=== PATIENT | male | born 1960 | race Caucasian/White ===

== ENCOUNTER → 2018-08-11 | Outpatient (CLI) | payer OTHER ==
[2018-08-11 17:15] LABS: HGB 15.1 gm/dL (13.0-17.5); MCH 31.1 pg (25.0-35.0); MCHC 32.1 g/dL (31.0-37.0); MCV 96.8 fL (80.0-100.0); Mean Platelet Volume 7.2; Platelet Count 202 k/uL (150-450); RBC 4.85 m/uL (4.30-5.90); RDW 14.3 % (11.5-15.5); WBC 9.4 k/uL (3.8-10.6)
[2018-08-11 17:30] LABS: Anion Gap 10 mmol/L; Blood Urea Nitrogen 9 mg/dL (9-20); Carbon Dioxide 27 mmol/L (22-30); Chloride 103 mmol/L (98-107); Potassium 4.8 mmol/L (3.5-5.1); Sodium 140 mmol/L (137-145)
== END ==
LOC: LABPAT 16:30
PROVIDERS: ATTEND Internal Medicine Interventional Cardiology
DX: Z01.812 Encounter for preprocedural laboratory examination (principal); R94.39 Abnormal result of other cardiovascular function study; R06.02 Shortness of breath
CPT/HCPCS: 36415; 80051; 82565; 84520; 85027

== ENCOUNTER → 2018-08-26 | Day surgery (SDC) | payer OTHER ==
[2018-08-21 13:20] VITALS: BMI 21.4
[~2018-08-26] MED LIST: ACETAMINOPHEN TAB 325 MG TAB PO PRN; ALPRAZolam 0.25 MG TAB PO PRN; ALPRAZolam 0.5 MG TAB PO PRN; ASPIRIN 325 MG TAB PO ONE; ATORVASTATIN 20 MG TAB PO SCH; ATORVASTATIN 80 MG TAB PO ONE; IOPAMIDOL-370 100ML BTL INJ ONE; ISOSORBIDE MONONITRATE ER 30 MG TAB.ER.24H PO SCH; LIDOCAINE 1% INJ 10MG/ML (20 ML MDV) ONE; LIDOCAINE 1% INJ 10MG/ML (20 ML MDV) SQ ONE; LOSARTAN 50 MG TAB PO SCH; METOPROLOL TARTRATE 25 MG TAB PO SCH; NITROGLYCERIN 1000MCG/10ML SYRINGE INTRACORON ONE; NITROGLYCERIN SL TABS 0.4 MG TAB SUBLINGUAL PRN; NON-FORMULARY DRUG (Aspirin [Adult Low Dose Aspirin Ec] 81 MG) PO SCH; PANTOPRAZOLE 40 MG TABLET PO SCH; SODIUM CHLORIDE 0.9% 1,000 ML IV SCH; SODIUM CHLORIDE 0.9% 1,000 ML in EMPTY BAG 1 BAG IV ONE; TAMSULOSIN 0.4 MG CAP.ER.24H PO SCH; VENLAFAXINE HCL ER 150 MG CAP PO SCH; clonazePAM 0.5 MG TAB PO SCH; diphenhydrAMINE 50 MG/ML 1 ML VIAL IVP ONE; diphenhydrAMINE 50 MG/ML 1 ML VIAL ONE; lamoTRIgine 25 MG TAB PO SCH
[2018-08-26 06:58] VITALS: RESP 18; TEMP 95.9
[2018-08-26] MEDS: MIDAZOLAM (PF) 2 MG/2 ML VIAL IV ONE ×2 (07:39→07:45)
--- NOTE | 2018-08-26 09:41 | CC ---
CARDIAC CATHETERIZATION REPORT DATE OF SERVICE: 08/26/2018 PROCEDURE: Left heart catheterization, coronary angiography and left ventriculography. PERFORMED BY: Dr. Melly Culp. CLINICAL INFORMATION: Mr. Los Johnson is a 58-year-old gentleman, history of smoking and alcoholism with abnormal stress test. Possibility of alcoholic cardiomyopathy was also considered given the decreased ejection fraction. However, in view of his abnormal stress test and symptoms of chest tightness, pressure and shortness of breath. He was advised to have coronary angiography. Risks, benefits, options and rationale were explained. PROCEDURE NOTE: Under local anesthesia and strict aseptic precautions, a 6-Peruvian introducer was placed in the right femoral artery. Using standard Dianne catheters, I performed coronary angiography and a pigtail catheter was used to perform an LV-gram. The sheath was taken out and an Angio-Seal device used to secure hemostasis and patient was sent to the room in a stable condition. After injected the right coronary artery, patient's entire RCA went into a spasm. It appears that there is a significant vasospastic tendency for this patient. I then went back and gave him nitroglycerin and repeated the injections which showed that complete resolution of spasm without any obstructive CAD in the dominant RCA. On the left system, there were no such spasm issues. LV gram was also performed in 30 degree ARRIAZA projection. Patient tolerated the procedure well without complications. CARDIAC CATHETERIZATION FINDINGS: The left end-diastolic pressure was about 12 mmHg without any gradient across the aortic valve. CORONARY ANGIOGRAPHY FINDINGS: RIGHT CORONARY ARTERY: There was intense spasm of this vessel when I did the first injection and the spasm was not just focally at the ostium. The whole vessel had revealed spasm diffusely. Following a nitroglycerin injection, intracoronary of 100 mcg, the entire spasm resolved and the vessel looked widely patent without any disease whatsoever. RCA is therefore a dominant vessel without significant disease. Distally bifurcates into a large PDA and PLV, both of which have minor irregularities and no significant disease. LEFT MAIN CORONARY ARTERY: This is a short, patent, disease-free vessel that bifurcates into LAD and circumflex. There is mild calcification of the left main. LEFT ANTERIOR DESCENDING CORONARY ARTERY: Good caliber vessel extends along the anterior wall, gives off septal and diagonal branches, runs all the way to the apex and curves over the apex to supply the inferoapical portion of left ventricle. LAD is therefore free of significant disease. LEFT POSTERIOR CIRCUMFLEX CORONARY ARTERY: This is a very large caliber, large distribution vessel, gives off three obtuse marginal branches, all of them of fair caliber and distally it continues as a posterolateral branch. There are minor irregularities but no significant disease in a large caliber, large distribution, nondominant circumflex coronary artery. LEFT VENTRICULOGRAM: This was performed in 30 degree ARRIAZA projection, this revealed left ventricle is of normal size with mild global decrease in contractility with an estimated ejection fraction of about 45% by visual inspection. There was no mitral regurgitation of significance noted. FINAL IMPRESSION: This patient has a vasospastic dominant right coronary artery which was widely patent after intracoronary injection of nitroglycerin. The left system is free of significant disease. There is mild global decrease in contractility, estimated ejection fraction of about 45% by visual inspection suggestive of nonischemic cardiomyopathy. Filling pressures are normal and there is no gradient across the aortic valve. RECOMMENDATIONS: Findings were discussed with the patient and family. I am recommending complete cessation of alcohol with a repeat echo in about 3 months. I will also start him on Imdur 30 mg b.i.d. The patient does smoke on a regular basis. I have advised smoking cessation which could be contributing to spasm and also not to use marijuana. Alcohol, marijuana, and tobacco abuse to be stopped altogether. Imdur 30 mg half-tablet b.i.d. will be initiated. The moderate conscious sedation time for this procedure was 24 minutes. Patient's oxygen saturation, hemodynamics and EKG were monitored closely. He was administered Versed 1 mg intravenously. MMODL / IJN: [id number] /
[2018-08-26 13:16] VITALS: BP 132/72; PULSE 50
== END ==
LOC: CATHCVL 06:16
PROVIDERS: ATTEND Internal Medicine Interventional Cardiology
DX: I25.110 Atherosclerotic heart disease of native coronary artery with unstable angina pectoris (principal); I25.84 Coronary atherosclerosis due to calcified coronary lesion; F31.70 Bipolar disorder, currently in remission, most recent episode unspecified; J44.9 Chronic obstructive pulmonary disease, unspecified; F17.210 Nicotine dependence, cigarettes, uncomplicated; F10.20 Alcohol dependence, uncomplicated; Z79.82 Long term (current) use of aspirin; Z79.899 Other long term (current) drug therapy; Z88.5 Allergy status to narcotic agent
CPT/HCPCS: 93458; C1760; C1894; C1769 ×2; J1200; J2001; Q9967; J2250

== ENCOUNTER → 2019-06-05 | Outpatient (CLI) | payer OTHER ==
--- NOTE | 2019-06-08 11:51 | PE ---
Nuclear medicine PET/CT HISTORY: Left lower lobe lung nodule, initial Patient received 11.8 mCi F-18 FDG intravenously in delayed scanning was performed from the skull bas e to the mid thighs. Localization and attenuation correction CT scan was performed. No comparisons, comparison to outside report of CT dated 03 March 2019 Neck and chest: There is spiculated density described outside report is not seen definitively on [facility]'s nuclear medicine PET/CT. There is no associated hypermetabolic uptake within the lungs. No pleura l pericardial effusion. Biapical pleural thickening is present. Mild hilar uptake. No supraclavicular adenopathy. No axillary or mediastinal adenopathy. There is a small hiatal hernia. ABDOMEN: No suspicious hypermetabolic uptake. No evident adrenal or liver mass. Extensive diverticula r change present in the sigmoid colon. Osseous structures unremarkable. IMPRESSION: Pulmonary nodule described in prior report is no longer evident.
== END | disposition home or self-care (01) ==
LOC: RADPETMAIN 10:49
PROVIDERS: ATTEND Internal Medicine Critical Care Medicine
DX: R91.8 Other nonspecific abnormal finding of lung field (principal)
CPT/HCPCS: 78815; A9552

== ENCOUNTER → 2023-01-07 | Outpatient (CLI) | payer OTHER ==
--- NOTE | 2023-01-07 10:22 | CT ---
EXAMINATION TYPE: CT chest w con DATE OF EXAM: 01/07/2023 COMPARISON: None HISTORY: Personal history of tobacco use. CT DLP: 345 mGycm Automated exposure control for dose reduction was used. CONTRAST: CT scan of the chest is performed with IV Contrast, patient injected with 100ml mL of Isovue 300. FINDINGS: LUNGS: There is pleural parenchymal nodular density in the region of the lingula which is likely rela karl to postinflammatory scarring rather than a nodule however there is a nodular component measuring 1.6 cm. This is likely benign however follow-up is recommended. Additional parenchymal scarring is se en within the left upper lobe anteriorly as well as the right upper lobe and right middle lobe. Addit ional parenchymal scar at the lung bases versus mild dependent atelectasis. There is hyperinflation c ompatible with COPD. Mild upper lobe emphysematous change is noted. MEDIASTINUM: There are no greater than 1 cm hilar or mediastinal lymph nodes. No pericardial effusi on is seen. Thoracic aorta is of normal caliber. The heart is not enlarged. UPPER ABDOMEN: No significant abnormality appreciated. OTHER: No additional significant abnormality is seen. IMPRESSION: 1. Areas of the pleural parenchymal scarring seen bilaterally with somewhat of a more nodular compone nt seen in the region of the lingula. As such precautionary follow-up in 3-4 months is recommended.
== END | disposition home or self-care (01) ==
LOC: RADCTMAIN 09:35
PROVIDERS: ATTEND Family Medicine
DX: R91.8 Other nonspecific abnormal finding of lung field (principal); Z87.891 Personal history of nicotine dependence
CPT/HCPCS: 71260; Q9967

== ENCOUNTER 2023-12-25 11:32 | Observation (INO) | payer MEDICARE, OTHER ==
[2023-12-25] MEDS: IPRATROPIUM-ALBUTEROL 3 ML NEB INHALATION STA (12:46)
[2023-12-25] MEDS: methylPREDNISolone SOD SUCCI 125 MG/2 ML VIAL IV STA (12:59)
[2023-12-25 13:17] LABS: Anisocytosis Slight; Basophils % (A) 1 %; Eosinophils # (A) 0.1 k/uL (0-0.7); Eosinophils % (A) 2 %; HCT 41.4 % (39.0-53.0); HGB 13.6 gm/dL (13.0-17.5); Lymphocytes # (A) 1.3 k/uL (1.0-4.8); Lymphocytes % (A) 16 %; MCH 30.1 pg (25.0-35.0); MCHC 32.7 g/dL (31.0-37.0); MCV 92.1 fL (80.0-100.0); Mean Platelet Volume 7.9; Monocytes # (A) 0.4 k/uL (0-1.0); Monocytes % (A) 5 %; Neutrophils # (A) 6.2 k/uL (1.3-7.7); Neutrophils % (A) 76 %; Platelet Count 319 k/uL (150-450); RDW 16.1 % (11.5-15.5); WBC 8.2 k/uL (3.8-10.6)
--- NOTE | 2023-12-25 13:20 | XR ---
EXAMINATION TYPE: XR chest 2V DATE OF EXAM: 12/25/2023 COMPARISON: 01/07/2023 TECHNIQUE: PA and lateral views submitted. HISTORY: Chest pain FINDINGS: There is a large left lung mass suspicious for malignancy with left hilar adenopathy. Diffuse emphyse matous changes. Biapical pleural thickening. Elevated left hemidiaphragm. No overt failure. IMPRESSION: 1. Large left apical lung mass correlate for malignancy. 2. COPD.
[2023-12-25 13:27] LABS: Partial Thromboplastin Time 23.8 sec (22.0-30.0); Prothrombin Time 10.5 sec (10.0-12.5)
[2023-12-25 13:34] LABS: ALT 10 U/L (4-49); AST 22 U/L (17-59); African American GFR (CKD) >90 (>60 ml/min/1.73 sqM); Albumin 4.1 g/dL (3.5-5.0); Alkaline Phosphatase 91 U/L (38-126); Anion Gap 4 mmol/L; Blood Urea Nitrogen 13 mg/dL (9-20); Calcium 10.2 mg/dL (8.4-10.2); Carbon Dioxide 30 mmol/L (22-30); Chloride 106 mmol/L (98-107); Glucose 93 mg/dL (74-99); Non-African American GFR(CKD) >90 (>60 ml/min/1.73 sqM); Potassium 4.3 mmol/L (3.5-5.1); Sodium 140 mmol/L (137-145); Total Bilirubin 0.6 mg/dL (0.2-1.3); Total Protein 7.3 g/dL (6.3-8.2)
--- NOTE | 2023-12-25 13:38 | ED ---
Chest Pain HPI - General Chief Complaint: Chest Pain Stated Complaint: chest tightness Time Seen by Provider: 12/25/23 11:51 Source: patient, RN notes reviewed Mode of arrival: ambulatory Limitations: no limitations - History of Present Illness Initial Comments: 63-year-old male presents emergency department from PCPs office with chief complaint of chest pain. Patient states that has been having chest tightness last couple weeks he does have a history of COPD in which she states he does not take any significant medications for he has prior cardiac disease patient states pain is in the central chest and into his back. Patient denies fevers or chills no abdominal pain denies any nausea from diarrhea constipation. Patient does not see a senior mobile web developer currently. - Related Data Home Medications Medication Instructions Recorded Confirmed Aspirin [Adult Low Dose Aspirin EC] 81 mg PO DAILY 08/21/18 08/26/18 Atorvastatin [Lipitor] 20 mg PO DAILY 08/21/18 08/26/18 Losartan [Cozaar] 50 mg PO DAILY 08/21/18 08/26/18 Metoprolol Tartrate [Lopressor] 25 mg PO BID 08/21/18 08/26/18 Omeprazole [PriLOSEC] 20 mg PO AC-BRKFST 08/21/18 08/26/18 Tamsulosin HCl [Flomax] 0.4 mg PO DAILY 08/21/18 08/26/18 Venlafaxine HCl [Effexor XR] 150 mg PO DAILY 08/21/18 08/26/18 clonazePAM [KlonoPIN] 0.5 mg PO BID 08/21/18 08/26/18 lamoTRIgine [LaMICtal] 25 mg PO BID 08/21/18 08/26/18 rOPINIRole HCL [Requip] 0.25 mg PO HS 08/21/18 08/26/18 Previous Rx's Medication Instructions Recorded Isosorbide Mononitrate ER [Imdur] 30 mg PO BID tab.er.24h 08/26/18 Allergies Allergy/AdvReac Type Severity Reaction Status Date / Time morphine Allergy Rash/Hives Verified 12/25/23 11:38 Review of Systems ROS Statement: Those systems with pertinent positive or pertinent negative responses have been documented in the HPI. ROS Other: All systems not noted in ROS Statement are negative. EKG Findings - EKG Comments: EKG Findings:: EKG performed at 11: 43 sinus rhythm rate of 66 KS 149 QRS 97 QT/QTc 414/428 - EKG Results: EKG: interpreted by RADHA Past Medical History Past Medical History: COPD, Hypertension Additional Past Medical History / Comment(s): EMPHYSEMA. RLS. POSITIVE STRESS TEST History of Any Multi-Drug Resistant Organisms: None Reported Additional Past Surgical History / Comment(s): COLONOSCOPY Past Anesthesia/Blood Transfusion Reactions: No Reported Reaction Past Psychological History: Anxiety, Bipolar Smoking Status: Current every day smoker Past Alcohol Use History: Occasional Past Drug Use History: Marijuana - Past Family History Mother Family Medical History: Cancer General Exam Limitations: no limitations General appearance: alert, in no apparent distress Head exam: Present: atraumatic, normocephalic, normal inspection Eye exam: Present: normal appearance, PERRL, EOMI. Absent: scleral icterus, conjunctival injection, periorbital swelling Neck exam: Present: normal inspection. Absent: tenderness, meningismus, lymphadenopathy Respiratory exam: Present: wheezes. Absent: normal lung sounds bilaterally, respiratory distress, rales, rhonchi, stridor Cardiovascular Exam: Present: regular rate, normal rhythm, normal heart sounds. Absent: systolic murmur, diastolic murmur, rubs, gallop, clicks GI/Abdominal exam: Present: soft, normal bowel sounds. Absent: distended, tenderness, guarding, rebound, rigid Course Vital Signs 12/25/23 12/25/23 12/25/23 11:35 12:38 12:46 Temperature 97.6 F Pulse Rate 71 61 63 Respiratory 20 20 Rate Blood Pressure 116/74 125/71 O2 Sat by Pulse 96 Oximetry 12/25/23 12/25/23 12/25/23 12:55 13:00 13:17 Temperature Pulse Rate 68 66 70 Respiratory 20 17 Rate Blood Pressure 117/74 116/68 O2 Sat by Pulse 100 Oximetry Chest Pain MDM - MDM Was pt. sent in by a medical professional or institution (, PA, INSTRUCTIONAL DESIGNER, urgent care, hospital, or long term...) When possible be specific @ -[PCP Did you speak to anyone other than the patient for history (EMS, parent, family, police, friend...)? What history was obtained from this source @ -No Did you review nursing and triage notes (agree or disagree)? Why? @ -I reviewed and agree with nursing and triage notes Were old charts reviewed (outside hosp., previous admission, EMS record, old EKG, old radiological studies, urgent care reports/EKG's, long term records)? Report findings @ -No old charts were reviewed Differential Diagnosis (chest pain, altered mental status, abdominal pain women, abdominal pain men, vaginal bleeding, weakness, fever, dyspnea, syncope, headache, dizziness, GI bleed, back pain, seizure, CVA, palpatations, mental health, musculoskeletal)? @ -Differential Chest Pain: Stable Angina, Unstable Angina, STEMI, NSTEMI Aortic Dissection, Pneumothorax, Musculoskeletal, Esophageal Spasm GERD, Cholecystitis, Pancreatitis, Zoster, this is not meant to be an all-inclusive list. EKG interpreted by me (3pts min.). @ -As above X-rays interpreted by me (1pt min.). @ -Chest x-ray shows large left upper lobe mass CT interpreted by me (1pt min.). @ -None done U/S interpreted by me (1pt. min.). @ -None done What testing was considered but not performed or refused? (CT, X-rays, U/S, labs)? Why? @ -None What meds were considered but not given or refused? Why? @ -None Did you discuss the management of the patient with other professionals (professionals i.e. , PA, INSTRUCTIONAL DESIGNER, lab, RT, psych nurse, child protective services social worker, chiropractic teacher, teacher, chief informatics officer, hospice case manager)? Give summary @ -Dr. Huang for admission Was smoking cessation discussed for >3mins.? @ -No Was critical care preformed (if so, how long)? @ -No Were there social determinants of health that impacted care today? How? (Homelessness, low income, unemployed, alcoholism, drug addiction, transportation, low edu. Level, literacy, decrease access to med. care, fdc, rehab)? @ -No Was there de-escalation of care discussed even if they declined (Discuss DNR or withdrawal of care, Hospice)? DNR status @ -No What co-morbidities impacted this encounter? (DM, HTN, Smoking, COPD, CAD, Cancer, CVA, ARF, Chemo, Hep., AIDS, mental health diagnosis, sleep apnea, morbid obesity)? @ -COPD CAD Was patient admitted / discharged? Hospital course, mention meds given and route, prescriptions, significant lab abnormalities, going to OR and other pertinent info. @ -Admitted patient presented from PCPs office for chest pain initial troponin negative patient does have multiple risk factors patient found to have large lung mass in which she will have pulmonary consult Undiagnosed new problem with uncertain prognosis? @ -Yes lung mass Drug Therapy requiring intensive monitoring for toxicity (Heparin, Nitro, Insul in, Cardizem)? @ -No Were any procedures done? @ -No Diagnosis/symptom? @ -Lung mass, chest pain Acute, or Chronic, or Acute on Chronic? @ -Acute Uncomplicated (without systemic symptoms) or Complicated (systemic symptoms)? @ -Complicated Side effects of treatment? @ -No Exacerbation, Progression, or Severe Exacerbation? @ -No Poses a threat to life or bodily function? How? (Chest pain, [place], [place], pneumonia, PE, COPD, DKA, ARF, appy, cholecystitis, CVA, Diverticulitis, Homicidal, Suicidal, threat to staff... and all critical care pts) @ -Yes chest pain possible ACS, cardiac arrest, lung mass possible cancer Disposition Clinical Impression: Lung mass, Chest pain, COPD (chronic obstructive pulmonary disease) Disposition: ADMITTED IP TO THIS HOSP Condition: Poor Referrals: Hugo Cruz MD [Primary Care Provider] - 1-2 days Time of Disposition: 13:55
[2023-12-25 13:42] LABS: NT-Pro-B-Type Natriuretic Pept 435 pg/mL
[2023-12-25] MEDS ORDERED: NITROGLYCERIN SL TABS 0.4 MG TAB SUBLINGUAL PRN (13:56)
[2023-12-25] MEDS: ASPIRIN 81 MG PO STA (14:09)
[2023-12-25] MEDS ORDERED: ONDANSETRON 4 MG/2 ML VIAL IVP PRN (17:51)
[2023-12-25] MEDS ORDERED: CALCIUM CARBONATE 500 MG CHEWABLE PO PRN (17:51)
[2023-12-25] MEDS ORDERED: LACTULOSE 20 GM/30 ML CUP PO PRN (17:51)
--- NOTE | 2023-12-25 18:02 | P.HPIM ---
History of Present Illness H&P Date: 12/25/23 Chief Complaint: Chest tightness This is a pleasant 63-year-old patient follows with Dr. Hugo Cruz. Chronic stable medical condition include COPD, hypertension, restless leg syndrome, BPH, bipolar. Patient is a longstanding smoker. Was also drinking heavy for many years up to a case of beer a day now down to a few beers a day. Patient presents clinic with 2 weeks of chest tightness. Even at rest. Worse with activity. Breaks out in a sweat at night. Short of breath. Some wheezing occasionally. Decreased appetite some weight loss. X-ray at that ER showed a left lung mass. Patient has some cough. Review of systems: GEN.: Weight loss decreased appetite EYES: None HEENT: None NECK: None RESPIRATORY: As above e CARDIOVASCULAR: As above GASTROINTESTINAL: None GENITOURINARY: None MUSCULOSKELETAL: [Joint pain especially in the ankles LYMPHATICS: None HEMATOLOGICAL: None PSYCHIATRY: None NEUROLOGICAL: None Social history: Smokes a pack and a half a day for over 50 years. Was drinking 1 case of beer a day for over 50 years. Now down to few beers a day. Retired from [employer]. Lives with his . Physical examination: VITAL SIGNS: 97.7, 63, 16, 114/71, 97% room air GENERAL: BMI 21.4, reclining bed awake not in distress. Very thin built. EYES: Pupils equal. Conjunctiva yumiko l. HEENT: External appearance of nose and ears normal, oral cavity grossly normal. NECK: JVD not raised; masses not palpable. HEART: First and second heart sounds are normal; no edema. LUNGS: Respiratory rate normal; decreased breath sounds. ABDOMEN: Soft, nontender, liver spleen not palpable, no masses palpable. PSYCH: Alert and oriented x3; mood and affect yumiko l. MUSCULOSKELETAL:No Clubbing/cyanosis;muscles-grossly intact. OA. Loss of subcutaneous fat and loss of muscle mass NEUROLOGICAL: Cranial nerves grossly intact; no facial asymmetry, power and sensation grossly intact. LYMPHATICS: No lymph nodes palpable in the axilla and neck INVESTIGATIONS, reviewed in the clinical context: December 24: White count 8.2 hemoglobin 13.6 platelets 319 sodium 140 potassium 4.3 BUN 13 creatinine 0.81 EKG tracing personally reviewed by me-normal sinus rhythm. Poor R waveProgression anterior leads. Chest x-ray film personally reviewed by me-left upper lung mass. Emphysema changes Assessment plan: -Chest pressure worse with activity. Rule out underlying CAD. Cardiac risk factors include age, longstanding smoker. Troponin negative. Poor R wave progression anterior leads. Check 2D echo. Troponin I less than 0.012 proBNP 435 -COPD and a current smoker DuoNeb. Pulmicort Nicotine dependence cigarette smoker Nicotine patch -Large left upper lobe mass. Malignancy likely. Will keep n.p.o. after midnight for possible bronchoscopy for biopsy -Restless leg syndrome Gabapentin 600 mg nightly -GERD Prilosec 20 mg nightly -BPH Flomax 0.4 mg a day -Bipolar Zyprexa, Celexa, Lamictal -Alcohol use disorder Patient on naltrexone -Full code Care was discussed with the patient. Consultation to pulmonary, oncology, car diology. Past Medical History Past Medical History: COPD, Hypertension Additional Past Medical History / Comment(s): EMPHYSEMA. RLS. POSITIVE STRESS TEST History of Any Multi-Drug Resistant Organisms: None Reported Additional Past Surgical History / Comment(s): COLONOSCOPY Past Anesthesia/Blood Transfusion Reactions: No Reported Reaction Past Psychological History: Anxiety, Bipolar Smoking Status: Current every day smoker Past Alcohol Use History: Occasional Past Drug Use History: Marijuana - Past Family History Mother Family Medical History: Cancer Medications and Allergies Home Medications Medication Instructions Recorded Confirmed Type Omeprazole [PriLOSEC] 20 mg PO HS 08/21/18 12/25/23 History Tamsulosin HCl [Flomax] 0.4 mg PO DAILY 08/21/18 12/25/23 History Citalopram Hydrobromide [CeleXA] 40 mg PO HS 12/25/23 12/25/23 History Fluticasone/Umeclidin/Vilanter 1 puff INHALATION RT-DAILY 12/25/23 12/25/23 History [Trelegy Ellipta 100-62.5-25] Gabapentin 600 mg PO HS 12/25/23 12/25/23 History Mv-Min/Folic/K1/Lycopen/Lutein 1 tab PO DAILY 12/25/23 12/25/23 History [Centrum Silver Men Tablet] Naltrexone HCl 50 mg PO HS 12/25/23 12/25/23 History OLANZapine [ZyPREXA] 15 mg PO HS 12/25/23 12/25/23 History hydrOXYzine HCL [Atarax] 50 - 100 mg PO HS PRN 12/25/23 12/25/23 History hydrOXYzine HCL [Atarax] 50 mg PO DAILY PRN 12/25/23 12/25/23 History lamoTRIgine [LaMICtal] 150 mg PO BID 12/25/23 12/25/23 History Allergies Allergy/AdvReac Type Severity Reaction Status Date / Time morphine Allergy Rash/Hives Verified 12/25/23 14:03 Physical Exam Vitals: Vital Signs Temp Pulse Resp BP Pulse Ox 12/25/23 17:18 97.7 F 63 16 114/71 97 12/25/23 16:02 65 14 98/67 99 12/25/23 14:20 69 16 110/73 98 12/25/23 13:17 70 17 116/68 100 12/25/23 13:00 66 20 117/74 12/25/23 12:55 68 12/25/23 12:46 63 12/25/23 12:38 61 20 125/71 12/25/23 11:35 97.6 F 71 20 116/74 96 Intake and Output 12/25/23 12/25/23 12/25/23 06:59 14:59 22:59 Other: Weight 65.771 kg Results CBC & Chem 7: 12/25/23 12:46 12/25/23 12:46 Labs: Abnormal Lab Results - Last 24 Hours (Table) 12/25/23 Range/Units 12:46 RDW 16.1 H (11.5-15.5) %
[2023-12-25] MEDS: ENOXAPARIN 40 MG/0.4 ML SYRINGE SQ SCH (19:57)
[2023-12-25] MEDS: NICOTINE 21MG/24HR PATCH TRANSDERM SCH (19:57)
[2023-12-25] MEDS: PANTOPRAZOLE 40 MG TABLET PO SCH (21:59)
[2023-12-25] MEDS: GABAPENTIN 300 MG CAP PO SCH (21:59)
[2023-12-25] MEDS: CITALOPRAM HYDROBROMIDE 20 MG TAB PO SCH (22:00)
[2023-12-25] MEDS: lamoTRIgine 100 MG TAB PO SCH (22:00)
[2023-12-25] MEDS: BUDESONIDE 1 MG/2 ML NEBU INHALATION SCH (22:12)
[2023-12-25] MEDS: IPRATROPIUM-ALBUTEROL 3 ML NEB INHALATION SCH (22:13)
[2023-12-25] MEDS: OLANZapine 7.5 MG TAB PO SCH (22:19)
[2023-12-25] MEDS: NALTREXONE HCL 50 MG TAB PO SCH (22:19)
[2023-12-26] MEDS ORDERED: RX INFO: IV CONTRAST WAS GIVEN 1 EACH MISC MISCELLANE PRN (08:47)
[2023-12-26 09:05] LABS: Chol/HDL Ratio 4.75 Ratio; LDL Cholesterol,Calculated 157.8 mg/dL (0.0-131.0)
[2023-12-26] MEDS: ASPIRIN 81 MG PO SCH (09:07)
[2023-12-26] MEDS: TAMSULOSIN 0.4 MG CAP.ER.24H PO SCH (09:07)
[2023-12-26] MEDS: predniSONE 10 MG TAB PO SCH (09:40)
[2023-12-26] MEDS: ALPRAZolam 0.25 MG TAB PO PRN (09:40)
--- NOTE | 2023-12-26 10:33 | CT ---
EXAMINATION TYPE: CT chest w con DATE OF EXAM: 12/26/2023 COMPARISON: 01/07/2023 HISTORY: LT lung mass CT DLP: 210.3 mGycm Automated exposure control for dose reduction was used. TECHNIQUE: CT scan of the chest is performed with IV Contrast, patient injected with 100 mL of Isovue 300. MIP Images are created on CT scanner and reviewed. 3D reconstructed images are created on an independent workstation and reviewed. FINDINGS: LUNGS: There is a large left upper lobe lung mass measuring 9 cm extending the left hilum with a mass ashley left hilar adenopathy. There is constriction of the left pulmonary artery but no definite filling defect by standard CT technique. Apical pleural thickening with subpleural micronodule laterally likely inflammatory. Diffuse emphysem atous changes with vague groundglass nodule left upper lobe measuring 6 mm image 20 likely inflammato ry. Additional areas of subsegmental scarring or atelectasis. No consolidative pneumonia or pulmonary edema. Trace amount of pleural fluid seen along the left infe rior lung base. MEDIASTINUM: There is massive left hilar adenopathy. Extension the left upper lobe lung mass estimate d to short axis measurement of 5 cm. Mediastinal adenopathy also noted with the largest lymph node me asuring a short axis of 3 cm. Constriction of the left pulmonary artery with no definite filling defe ct. Heart size normal. Aorta of normal caliber. OTHER: Degenerative changes of the spine. Mild thickening of the left adrenal gland too small to denise racterize. Small hiatal hernia. Hepatic steatosis with reflux of contrast into the hepatic veins and IVC which could be seen with right heart disease or tricuspid disease. There is a deformity of the l eft 11th rib posteriorly. Correlate for point tenderness and possible fracture or pathologic fracture . IMPRESSION: 1. Large left upper lobe lung mass with pathologic adenopathy suspicious for malignancy. 2. COPD. 3. There is age indeterminant fracture posterior left 11th rib recommend correlation with point tende rness to assess for fracture or early pathologic fracture. No sizable soft tissue component. Follow-up recommendations for incidental pulmonary nodules are per [employer] or [employer].
--- NOTE | 2023-12-26 10:36 | CA ---
Transthoracic Echo Report Name: Los Johnson Age: 63 Gender: M : 1960 Exam Date: 12/25/2023 14:46 Exam Location: [facility] Ht (in): 69 Wt (lb): 145 Ordering Physician: Jovany Patrick PAC Attending/Referring Phys: ASHLYN, Darnell Emblem Maker Esther Clark RDCS Procedure CPT: Indications: Chest Pain Cardiac Hx: Technical Quality: Good Contrast 1: Total Dose (mL): Contrast 2: Total Dose (mL): MEASUREMENTS (Male / Female) Normal Values 2D ECHO LV Diastolic Diameter PLAX 5.8 cm 4.2 - 5.9 / 3.9 - 5.3 cm LV Systolic Diameter PLAX 4.6 cm IVS Diastolic Thickness 1.0 cm 0.6 - 1.0 / 0.6 - 0.9 cm LVPW Diastolic Thickness 1.0 cm 0.6 - 1.0 / 0.6 - 0.9 cm LV Relative Wall Thickness 0.4 LVOT Diameter 2.3 cm LV Diastolic Volume MOD BP 132.9 cm??? 67 - 155 / 56 - 104 cm??? LV Systolic Volume MOD BP 64.8 cm??? 22 - 58 / 19 - 49 cm??? LV Ejection Fraction MOD BP 51.2 % >= 55 % LV Cardiac Index MOD BP 2856.9 cm???/min???m??? LV Diastolic Volume MOD 4C 119.9 cm??? LV Systolic Volume MOD 4C 59.9 cm??? LV Ejection Fraction MOD 4C 50.0 % LV Cardiac Index MOD 4C 2518.0 cm???/min???m??? LV Diastolic Length 4C 9.0 cm LV Systolic Length 4C 8.2 cm LV Diastolic Volume MOD 2C 137.1 cm??? LV Systolic Volume MOD 2C 68.9 cm??? LV Ejection Fraction MOD 2C 49.7 % LV Cardiac Index MOD 2C 2862.5 cm???/min???m??? LV Diastolic Length 2C 9.7 cm LV Systolic Length 2C 8.1 cm LA Volume 64.2 cm??? 18 - 58 / 22 - 52 cm??? LA Volume Index 36.0 cm???/m??? 16 - 28 cm???/m??? Ascending Aorta Diameter 3.3 cm DOPPLER AV Peak Velocity 145.5 cm/s AV Peak Gradient 8.5 mmHg AV Mean Velocity 100.9 cm/s AV Mean Gradient 4.6 mmHg AV Velocity Time Integral 30.5 cm LVOT Peak Velocity 96.3 cm/s LVOT Peak Gradient 3.7 mmHg LVOT Velocity Time Integral 18.8 cm LVOT Stroke Volume 78.0 cm??? LVOT Stroke Volume Index 43.3 ml/m??? LVOT Cardiac Index 3274.4 cm???/min???m??? AV Area Cont Eq vti 2.6 cm??? AV Area Cont Eq pk 2.7 cm??? MV Area PHT 4.8 cm??? Mitral E Point Velocity 50.5 cm/s Mitral A Point Velocity 54.5 cm/s Mitral E to A Ratio 0.9 MV Deceleration Time 158.8 ms TR Peak Velocity 253.4 cm/s TR Peak Gradient 25.7 mmHg Right Atrial Pressure 5.0 mmHg Pulmonary Artery Systolic Pressu 30.7 mmHg Right Ventricular Systolic Press 30.7 mmHg PV Peak Velocity 94.7 cm/s PV Peak Gradient 3.6 mmHg FINDINGS Left Ventricle Left ventricular ejection fraction is estimated at 50 %. Mildly increased left ventricular systolic volume. Mildly decreased left ventricular ejection fraction. No obvious regional wall motion abnormalities. Left ventricular wall thickness normal. Right Ventricle Mild right ventricular dilatation with normal function. Right ventricular systolic pressure within normal limits. Right Atrium Normal right atrial size. Left Atrium Mildly increased left atrial volume. Mitral Valve Structurally normal mitral valve. No mitral stenosis, regurgitation or prolapse. Aortic Valve Trileaflet aortic valve. No aortic valve stenosis or regurgitation. Tricuspid Valve Structurally normal tricuspid valve. No tricuspid stenosis. Mild tricuspid regurgitation. Pulmonic Valve Structurally normal pulmonic valve. No pulmonic stenosis. No pulmonic regurgitation. Pericardium No pericardial effusion. Aorta Normal size aortic root and proximal ascending aorta. CONCLUSIONS Left ventricular ejection fraction 50% Mildly increased left ventricular wall thickness RVSP 30 Mild tricuspid regurgitation Previewed by: Dr. Bao Byrd DO (Electronically Signed) Final Date: 26 December 2023 10:35
--- NOTE | 2023-12-26 11:32 | P.CRDCN ---
History of Present Illness History of present illness: HISTORY OF PRESENT ILLNESS: This is a 63-year-old male with a past medical history significant for minimal CAD, RCA spasm, COPD, nonischemic cardiomyopathy, syncope, and alcohol abuse. Yo dickson follows in the office with Dr. Byrd. We have been asked to see the patient in consultation for chest pain. Patient examined at the bedside in the ER. Patient states he has been having chest pressure for the past 3 weeks. He reports dizziness as well. He states this has happened in the past but worse recently. He reports SOB and has been taking breathing treatments which help a little bit. He reports a chronic cough. He reports decreased oral intake over the past couple days. Blood pressure low this morning at 89/44. DIAGNOSTICS: - EKG reveals sinus mechanism with PVCs. - Chest xray large left apical lung mass - Laboratory data: WBC 8.2. Hemoglobin 13.6. Platelet count 319. Sodium 140. Potassium 4.3. BUN 13. Creatinine 0.81. Troponin negative x 3. proBNP 435. - Current home cardiac medications include none - Most recent echocardiogram obtained in October 2020 revealed ejection fraction 50 to 55%, mild MR, mild TR - Cardiac catheterization history: 2019 revealing normal coronary arteries with RCA spasm REVIEW OF SYSTEMS: At the time of my exam: CONSTITUTIONAL: Denies fever or chills. HEENT: Denies blurred vision, vision changes, or eye pain. Denies hemoptysis CARDIOVASCULAR: Denies chest pain. Denies orthopnea. Denies PND. Denies palpitations RESPIRATORY: Denies shortness of breath. GASTROINTESTINAL: Denies abdominal pain. Denies nausea or vomiting. HEMATOLOGIC: Denies bleeding disorders. GENITOURINARY: Denies any blood in urine. SKIN: Denies pruitis. Denies rash. PHYSICAL EXAM: VITAL SIGNS: Reviewed. GENERAL: Well-developed in no acute distress. HEENT: Head is normocephalic. Pupils are equal, round. Sclerae anicteric. Mucous membranes of the mouth are moist. Neck supple. No JVD or thyromegaly LUNGS: Respirations even and unlabored. Lungs essentially clear to auscultation bilaterally. HEART: Regular rate and rhythm. S1 and S2 heard. ABDOMEN: Soft. Nondistended. Nontender. EXTREMITIES: Normal range of motion. No clubbing or cyanosis. Peripheral pulses intact. No lower extremity edema NEUROLOGIC: Awake and alert. Oriented x 3. ASSESSMENT: Chest pain, troponin negative x 3 Large left apical lung mass Hypotension Minimal CAD per cardiac catheterization in 2019 History of RCA spasm during cardiac catheterization Nonischemic cardiomyopathy with recovered EF, most recently 50 to 55% History of alcohol abuse COPD Nicotine dependence Marijuana use PLAN: An acute coronary but has been ruled out Obtain 2D echo to assess cardiac structure and function Pulmonary following for new lung mass. CT chest ordered. Obtain orthostatics. If positive, recommend Midodrine Further recommendations pending patient course Nurse practitioner note has been reviewed by physician. Signing provider agrees with the documented findings, assessment, and plan of care documented by [facility] [employer] STAFF OFFICER as a scribe. Past Medical History Past Medical History: COPD, Hypertension Additional Past Medical History / Comment(s): EMPHYSEMA. RLS. POSITIVE STRESS TEST History of Any Multi-Drug Resistant Organisms: None Reported Additional Past Surgical History / Comment(s): COLONOSCOPY Past Anesthesia/Blood Transfusion Reactions: No Reported Reaction Past Psychological History: Anxiety, Bipolar Smoking Status: Current every day smoker Past Alcohol Use History: Occasional Past Drug Use History: Marijuana - Past Family History Mother Family Medical History: Cancer Medications and Allergies Home Medications Medication Instructions Recorded Confirmed Type Omeprazole [PriLOSEC] 20 mg PO HS 08/21/18 12/25/23 History Tamsulosin HCl [Flomax] 0.4 mg PO DAILY 08/21/18 12/25/23 History Citalopram Hydrobromide [CeleXA] 40 mg PO HS 12/25/23 12/25/23 History Fluticasone/Umeclidin/Vilanter 1 puff INHALATION RT-DAILY 12/25/23 12/25/23 History [Trelegy Ellipta 100-62.5-25] Gabapentin 600 mg PO HS 12/25/23 12/25/23 History Mv-Min/Folic/K1/Lycopen/Lutein 1 tab PO DAILY 12/25/23 12/25/23 History [Centrum Silver Men Tablet] Naltrexone HCl 50 mg PO HS 12/25/23 12/25/23 History OLANZapine [ZyPREXA] 15 mg PO HS 12/25/23 12/25/23 History hydrOXYzine HCL [Atarax] 50 - 100 mg PO HS PRN 12/25/23 12/25/23 History hydrOXYzine HCL [Atarax] 50 mg PO DAILY PRN 12/25/23 12/25/23 History lamoTRIgine [LaMICtal] 150 mg PO BID 12/25/23 12/25/23 History Allergies Allergy/AdvReac Type Severity Reaction Status Date / Time morphine Allergy Rash/Hives Verified 12/25/23 14:03 Physical Exam Vitals: Vital Signs Temp Pulse Resp BP Pulse Ox 12/26/23 09:03 97.6 F 88 17 119/68 97 12/26/23 08:21 62 12/26/23 08:05 60 97 12/26/23 07:01 97.6 F 68 18 100/66 96 12/26/23 02:00 60 16 100/61 98 12/26/23 01:00 59 L 18 102/73 98 12/25/23 23:00 71 19 105/74 96 12/25/23 21:00 65 18 106/68 96 12/25/23 20:45 58 L 18 12/25/23 20:39 60 18 12/25/23 20:00 64 14 115/64 96 12/25/23 18:18 76 18 120/56 95 12/25/23 17:18 97.7 F 63 16 114/71 97 12/25/23 16:02 65 14 98/67 99 12/25/23 14:20 69 16 110/73 98 12/25/23 13:17 70 17 116/68 100 12/25/23 13:00 66 20 117/74 12/25/23 12:55 68 12/25/23 12:46 63 12/25/23 12:38 61 20 125/71 12/25/23 11:35 97.6 F 71 20 116/74 96 Results 12/25/23 12:46 12/25/23 12:46 Cardiac Enzymes 12/25/23 12/25/23 12/25/23 Range/Units 12:46 12:46 16:57 AST 22 (17-59) U/L Troponin I <0.012 <0.012 (0.000-0.034) ng/mL 12/25/23 Range/Units 18:29 AST (17-59) U/L Troponin I <0.012 (0.000-0.034) ng/mL Coagulation 12/25/23 Range/Units 12:46 PT 10.5 (10.0-12.5) sec APTT 23.8 (22.0-30.0) sec Lipids 12/25/23 Range/Units 00:40 Triglycerides 99.00 (0.00-149.00) mg/dL Cholesterol 225.00 H (0.00-200.00) mg/dL HDL Cholesterol 47.40 (40.00-60.00) mg/dL Cholesterol/HDL Ratio 4.75 Ratio CBC 12/25/23 Range/Units 12:46 WBC 8.2 (3.8-10.6) k/uL RBC 4.50 (4.30-5.90) m/uL Hgb 13.6 (13.0-17.5) gm/dL Hct 41.4 (39.0-53.0) % Plt Count 319 (150-450) k/uL Comprehensive Metabolic Panel 12/25/23 Range/Units 12:46 Sodium 140 (137-145) mmol/L Potassium 4.3 (3.5-5.1) mmol/L Chloride 106 (98-107) mmol/L Carbon Dioxide 30 (22-30) mmol/L BUN 13 (9-20) mg/dL Creatinine 0.81 (0.66-1.25) mg/dL Glucose 93 (74-99) mg/dL Calcium 10.2 (8.4-10.2) mg/dL AST 22 (17-59) U/L ALT 10 (4-49) U/L Alkaline Phosphatase 91 (38-126) U/L Total Protein 7.3 (6.3-8.2) g/dL Albumin 4.1 (3.5-5.0) g/dL Current Medications Generic Name Dose Route Start Last Admin Trade Name Freq PRN Reason Stop Dose Admin Acetaminophen 650 mg 12/25/23 17:51 Acetaminophen Tab 325 Mg Tab PO Q6HR PRN Mild Pain or Fever > 100.5 Albuterol/Ipratropium 3 ml 12/25/23 20:00 12/26/23 08:05 Ipratropium-Albuterol 3 Ml Neb INHALATION 3 ml RT-TID PEDRO Administration Alprazolam 0.25 mg 12/25/23 17:51 12/26/23 09:40 Alprazolam 0.25 Mg Tab PO 0.25 mg Q6HR PRN Administration Anxiety Aspirin 81 mg 12/26/23 09:00 12/26/23 09:07 Aspirin 81 Mg PO 81 mg DAILY PEDRO Administration Budesonide/Formoterol Fumarate 2 puff 12/26/23 20:00 Symbicort 160-4.5 Mcg Inhaler INHALATION RT-BID PEDRO Calcium Carbonate/Glycine 1,000 mg 12/25/23 17:51 Calcium Carbonate 500 Mg Chewable PO Q4HR PRN Dyspepsia Citalopram Hydrobromide 40 mg 12/25/23 21:00 12/25/23 22:00 Citalopram Hydrobromide 20 Mg Tab PO 40 mg HS PEDRO Administration Enoxaparin Sodium 40 mg 12/25/23 18:00 12/26/23 09:06 Enoxaparin 40 Mg/0.4 Ml Syringe SQ 40 mg DAILY PEDRO Administration Gabapentin 600 mg 12/25/23 21:00 12/25/23 21:59 Gabapentin 300 Mg Cap PO 600 mg HS PEDRO Administration Lactulose 20 gm 12/25/23 17:51 Lactulose 20 Gm/30 Ml Cup PO DAILY PRN Constipation Lamotrigine 150 mg 12/25/23 21:00 12/26/23 09:07 Lamotrigine 100 Mg Tab PO 150 mg BID PEDRO Administration Melatonin 3 mg 12/25/23 17:51 Melatonin 3 Mg Tablet PO HS PRN Insomnia Miscellaneous Information 1 each 12/26/23 08:47 Rx Info: Iv Contrast Was Given 1 Each Misc MISCELLANE 12/28/23 08:47 DAILY PRN Per Protocol Naltrexone HCl 50 mg 12/25/23 21:00 12/25/23 22:19 Naltrexone Hcl 50 Mg Tab PO 50 mg HS PEDRO Administration Nicotine 1 patch 12/25/23 18:00 12/26/23 09:07 Nicotine 21mg/24hr Patch TRANSDERM 1 patch DAILY PEDRO Administration Nitroglycerin 0.4 mg 12/25/23 13:56 Nitroglycerin Sl Tabs 0.4 Mg Tab SUBLINGUAL Q5M PRN Chest Pain Olanzapine 15 mg 12/25/23 21:00 12/25/23 22:19 Olanzapine 7.5 Mg Tab PO 15 mg HS PEDRO Administration Ondansetron HCl 4 mg 12/25/23 17:51 Ondansetron 4 Mg/2 Ml Vial IVP Q8HR PRN Nausea And Vomiting Pantoprazole Sodium 40 mg 12/25/23 21:00 12/25/23 21:59 Pantoprazole 40 Mg Tablet PO 40 mg HS PEDRO Administration Prednisone 30 mg 12/26/23 09:00 12/26/23 09:40 Prednisone 10 Mg Tab PO 30 mg DAILY PEDRO Administration Tamsulosin HCl 0.4 mg 12/26/23 09:00 12/26/23 09:07 Tamsulosin 0.4 Mg Cap.Er.24h PO 0.4 mg DAILY PEDRO Administration 12/25/23 12:46 12/25/23 12:46
--- NOTE | 2023-12-26 12:43 | P.CNPUL ---
History of Present Illness Consult date: 12/26/23 Requesting physician: Thiago Huang Reason for consult: dyspnea, COPD, abnormal CXR/CT Chief complaint: Chest pain, dizziness, shortness of breath History of present illness: This is a 63-year-old male patient with a 50-year smoking history, chronic obstructive pulmonary disease, hypertension, bipolar disorder. He presented here to the emergency room with complaints of chest pain, shortness of breath, dizziness and lightheadedness. EKG revealed sinus rhythm with nonspecific ST and T wave abnormalities. Chest x-ray reveals a large left apical lung mass. CT scan of the chest reveals a large left upper lung mass with pathologic adenopathy suspicious for malignancy. There is evidence of COPD. White count 8.2. Hemoglobin 13.6. Platelets 319. INR 1.0. Sodium 140. Potassium 4.3. Bicarb 30. BUN 13. Creatinine 0.81. Troponins are negative x 3. proBNP 435. He has been initiated on DuoNeb and elations, Symbicort, prednisone. NicoDerm patch in place. He is seen today in consultation in the emergency department. Awake and alert in no acute distress. He is maintaining O2 saturations in the 90s on room air. He denies any fever or chills. He denies hemoptysis. He has had a 5 pound weight loss recently. Review of Systems REVIEW OF SYSTEMS: CONSTITUTIONAL: Dizziness, lightheadedness. Positive for significant weight loss. EYES: Denies change in vision. EARS, NOSE, MOUTH, THROAT: Denies headaches, denies sore throat. CARDIOVASCULAR: Positive for chest pain, no palpitations or syncopal episodes. RESPIRATORY: Positive for shortness of breath, cough, congestion no hemoptysis. GASTROINTESTINAL: Denies change in appetite, denies abdominal pain GENITOURINARY: Denies hematuria, denies infections. MUSKULOSKELETAL: Denies pain, denies swelling. INTEGUMENTARY: Denies rash, denies eczema. NEUROLOGICAL: Denies recent memory loss, no recent seizure activity. PSYCHIATRIC: Denies anxiety, denies depression. HEMATOLOGIC/LYMPHATIC: Denies anemia, denies enlarged lymph nodes. Past Medical History Past Medical History: COPD, Hypertension Additional Past Medical History / Comment(s): EMPHYSEMA. RLS. POSITIVE STRESS TEST History of Any Multi-Drug Resistant Organisms: None Reported Additional Past Surgical History / Comment(s): COLONOSCOPY Past Anesthesia/Blood Transfusion Reactions: No Reported Reaction Past Psychological History: Anxiety, Bipolar Smoking Status: Current every day smoker Past Alcohol Use History: Occasional Past Drug Use History: Marijuana - Past Family History Mother Family Medical History: Cancer Medications and Allergies Home Medications Medication Instructions Recorded Confirmed Type Omeprazole [PriLOSEC] 20 mg PO HS 08/21/18 12/25/23 History Tamsulosin HCl [Flomax] 0.4 mg PO DAILY 08/21/18 12/25/23 History Citalopram Hydrobromide [CeleXA] 40 mg PO HS 12/25/23 12/25/23 History Fluticasone/Umeclidin/Vilanter 1 puff INHALATION RT-DAILY 12/25/23 12/25/23 H istory [Trelegy Ellipta 100-62.5-25] Gabapentin 600 mg PO HS 12/25/23 12/25/23 History Mv-Min/Folic/K1/Lycopen/Lutein 1 tab PO DAILY 12/25/23 12/25/23 History [Centrum Silver Men Tablet] Naltrexone HCl 50 mg PO HS 12/25/23 12/25/23 History OLANZapine [ZyPREXA] 15 mg PO HS 12/25/23 12/25/23 History hydrOXYzine HCL [Atarax] 50 - 100 mg PO HS PRN 12/25/23 12/25/23 History hydrOXYzine HCL [Atarax] 50 mg PO DAILY PRN 12/25/23 12/25/23 History lamoTRIgine [LaMICtal] 150 mg PO BID 12/25/23 12/25/23 History Allergies Allergy/AdvReac Type Severity Reaction Status Date / Time morphine Allergy Rash/Hives Verified 12/25/23 14:03 Physical Exam Vitals: Vital Signs Temp Pulse Resp BP Pulse Ox 12/26/23 11:57 75 12/26/23 11:49 73 12/26/23 09:03 97.6 F 88 17 119/68 97 12/26/23 08:21 62 12/26/23 08:05 60 97 12/26/23 07:01 97.6 F 68 18 100/66 96 12/26/23 02:00 60 16 100/61 98 12/26/23 01:00 59 L 18 102/73 98 12/25/23 23:00 71 19 105/74 96 12/25/23 21:00 65 18 106/68 96 12/25/23 20:45 58 L 18 12/25/23 20:39 60 18 12/25/23 20:00 64 14 115/64 96 12/25/23 18:18 76 18 120/56 95 12/25/23 17:18 97.7 F 63 16 114/71 97 12/25/23 16:02 65 14 98/67 99 12/25/23 14:20 69 16 110/73 98 12/25/23 13:17 70 17 116/68 100 12/25/23 13:00 66 20 117/74 12/25/23 12:55 68 12/25/23 12:46 63 12/25/23 12:38 61 20 125/71 GENERAL EXAM: Alert, pleasant thin 63-year-old male patient, on room air, fairly comfortable in no apparent distress. HEAD: Normocephalic. EYES: Normal reaction of pupils, equal size. NOSE: Clear with pink turbinates. THROAT: No erythema or exudates. NECK: No masses, no JVD. CHEST: No chest wall deformity. LUNGS: Equal air entry with bilateral scattered rhonchi, diminished. CVS: S1 and S2 normal with no audible murmur, regular rhythm. ABDOMEN: No hepatosplenomegaly, normal bowel sounds, no guarding or rigidity. SPINE: No scoliosis or deformity SKIN: No rashes CENTRAL NERVOUS SYSTEM: No focal deficits, tone is normal in all 4 extremities. EXTREMITIES: There is no peripheral edema. No clubbing, no cyanosis. Pe ripheral pulses are intact. Results - Laboratory Findings CBC and BMP: 12/25/23 12:46 12/25/23 12:46 PT/INR, D-dimer PT 10.5 sec (10.0-12.5) 12/25/23 12:46 INR 1.0 (<1.2) 12/25/23 12:46 Abnormal lab findings: Abnormal Labs 12/25/23 12/25/23 00:40 12:46 RDW 16.1 H Cholesterol 225.00 H LDL Cholesterol, Calc 157.8 H - Diagnostic Findings Chest x-ray: image reviewed CT scan - chest: image reviewed Assessment and Plan Assessment: Dyspnea secondary to suspected COPD exacerbation as well as a large left apical mass with massive left hilar adenopathy and some constriction of the left pulmonary artery for malignancy Dizziness and lightheadedness suspect secondary to above Chronic and ongoing tobacco dependence of 50 years Chronic obstructive pulmonary disease Hypertension Bipolar disorder Plan: The patient was seen and evaluated Imaging, labs and medications reviewed Initiated DuoNeb inhalations, Symbicort, prednisone NicoDerm patch in place Educated regarding the importance of smoking cessation Will continue treatment for his COPD exacerbation Will plan for biopsy of the left upper lobe mass early next week We will continue to follow and make further recommendations based on his clinical status I have personally seen and examined the patient, performed the documentation and the assessment and plan as written. Number of minutes spent on the visit: 20.
--- NOTE | 2023-12-26 15:05 | P.PN ---
Progress Note - Text Progress Note Date: 12/26/23 Chief Complaint: Chest tightness This is a pleasant 63-year-old patient follows with Dr. Hugo Cruz. Chronic stable medical condition include COPD, hypertension, restless leg syndrome, BPH, bipolar. Patient is a longstanding smoker. Was also drinking heavy for many years up to a case of beer a day now down to a few beers a day. Patient presents clinic with 2 weeks of chest tightness. Even at rest. Worse with activity. Breaks out in a sweat at night. Short of breath. Some wheezing occasionally. Decreased appetite some weight loss. X-ray at that ER showed a left lung mass. Patient has some cough. December 25: Patient reclining in bed. No further chest pain. Seen by cardiology. 2D echo showed EF preserved. CT scan of the chest showing left- sided lung mass with adenopathy. Possible bronchoscopy outpatient per pulmonary. Patient was seen earlier this morning by me. Spoke to the and daughter. Active Medications Acetaminophen (Acetaminophen Tab 325 Mg Tab) 650 mg PO Q6HR PRN PRN Reason: Mild Pain or Fever > 100.5 Albuterol/Ipratropium (Ipratropium-Albuterol 3 Ml Neb) 3 ml INHALATION RT-TID [facility] Last Admin: 12/26/23 11:49 Dose: 3 ml Alprazolam (Alprazolam 0.25 Mg Tab) 0.25 mg PO Q6HR PRN PRN Reason: Anxiety Last Admin: 12/26/23 09:40 Dose: 0.25 mg Aspirin (Aspirin 81 Mg) 81 mg PO DAILY [facility] Last Admin: 12/26/23 09:07 Dose: 81 mg Budesonide/Formoterol Fumarate (Symbicort 160-4.5 Mcg Inhaler) 2 puff INHALATION RT-BID [facility] Calcium Carbonate/Glycine (Calcium Carbonate 500 Mg Chewable) 1,000 mg PO Q4HR PRN PRN Reason: Dyspepsia Citalopram Hydrobromide (Citalopram Hydrobromide 20 Mg Tab) 40 mg PO HS [facility] Last Admin: 12/25/23 22:00 Dose: 40 mg Enoxaparin Sodium (Enoxaparin 40 Mg/0.4 Ml Syringe) 40 mg SQ DAILY [facility] Last Admin: 12/26/23 09:06 Dose: 40 mg Gabapentin (Gabapentin 300 Mg Cap) 600 mg PO HS [facility] Last Admin: 12/25/23 21:59 Dose: 600 mg Iopamidol (Iopamidol Contrast (Oral Use) Vial) 30 ml PO Q60M PRN PRN Reason: CT Scan Stop: 12/27/23 12:50 Lactulose (Lactulose 20 Gm/30 Ml Cup) 20 gm PO DAILY PRN PRN Reason: Constipation Lamotrigine (Lamotrigine 100 Mg Tab) 150 mg PO BID [facility] Last Admin: 12/26/23 09:07 Dose: 150 mg Melatonin (Melatonin 3 Mg Tablet) 3 mg PO HS PRN PRN Reason: Insomnia Miscellaneous Information (Rx Info: Iv Contrast Was Given 1 Each Misc) 1 each MISCELLANE DAILY PRN PRN Reason: Per Protocol Stop: 12/28/23 08:47 Naltrexone HCl (Naltrexone Hcl 50 Mg Tab) 50 mg PO [facility] Last Admin: 12/25/23 22:19 Dose: 50 mg Nicotine (Nicotine 21mg/24hr Patch) 1 patch TRANSDERM DAILY [facility] Last Admin: 12/26/23 09:07 Dose: 1 patch Nitroglycerin (Nitroglycerin Sl Tabs 0.4 Mg Tab) 0.4 mg SUBLINGUAL Q5M PRN PRN Reason: Chest Pain Olanzapine (Olanzapine 7.5 Mg Tab) 15 mg PO [facility] Last Admin: 12/25/23 22:19 Dose: 15 mg Ondansetron HCl (Ondansetron 4 Mg/2 Ml Vial) 4 mg IVP Q8HR PRN PRN Reason: Nausea And Vomiting Pantoprazole Sodium (Pantoprazole 40 Mg Tablet) 40 mg PO [facility] Last Admin: 12/25/23 21:59 Dose: 40 mg Prednisone (Prednisone 10 Mg Tab) 30 mg PO DAILY [facility] Last Admin: 12/26/23 09:40 Dose: 30 mg Tamsulosin HCl (Tamsulosin 0.4 Mg Cap.Er.24h) 0.4 mg PO DAILY [facility] Last Admin: 12/26/23 09:07 Dose: 0.4 mg Social history: Smokes a pack and a half a day for over 50 years. Was drinking 1 case of beer a day for over 50 years. Now down to few beers a day. Retired from [employer]. Lives with his . Physical examination: VITAL SIGNS:97. 6, 68, 18, 100/66, 96% room air GENERAL: BMI 21.4, reclining bed awake not in distress. Very thin built. EYES: Pupils equal. Conjunctiva yumiko l. HEENT: External appearance of nose and ears normal, oral cavity grossly normal. NECK: JVD not raised; masses not palpable. HEART: First and second heart sounds are normal; no edema. LUNGS: Respiratory rate normal; decreased breath sounds. ABDOMEN: Soft, nontender, liver spleen not palpable, no masses palpable. PSYCH: Alert and oriented x3; mood and affect yumiko l. MUSCULOSKELETAL:No Clubbing/cyanosis;muscles-grossly intact. OA. Loss of subcutaneous fat and loss of muscle mass INVESTIGATIONS, reviewed in the clinical context: CT chest large left upper lobe mass with pathologic sick adenopathy. Age- indeterminate fracture posterior left left rib steatosis 2D echocardiogram: EF 50%. LDL 157 December 24: White count 8.2 hemoglobin 13.6 platelets 319 sodium 140 potassium 4.3 BUN 13 creatinine 0.81 EKG tracing personally reviewed by me-normal sinus rhythm. Poor R waveProgression anterior leads. Chest x-ray film personally reviewed by me-left upper lung mass. Emphysema changes Assessment plan: -Chest pressure worse with activity. Cardiac risk factors include age, longstanding smoker.: Possible angina Troponin negative. Poor R wave progression anterior leads. The echo shows preserved LV function Troponin I less than 0.012 proBNP 435 Cardiology following -COPD and a current smoker DuoNeb. Pulmicort Nicotine dependence cigarette smoker Nicotine patch -Large left upper lobe mass. Malignancy likely. CT scan shows left upper lung mass with adenopathy -Restless leg syndrome Gabapentin 600 mg nightly -GERD Prilosec 20 mg nightly -BPH Flomax 0.4 mg a day -Bipolar Zyprexa, Celexa, Lamictal -Alcohol use disorder Patient on naltrexone -Full code Care was discussed with the patient. Plan depending on pulmonary and cardiology. Past Medical History Past Medical History: COPD, Hypertension Additional Past Medical History / Comment(s): EMPHYSEMA. RLS. POSITIVE STRESS TEST History of Any Multi-Drug Resistant Organisms: None Reported Additional Past Surgical History / Comment(s): COLONOSCOPY Past Anesthesia/Blood Transfusion Reactions: No Reported Reaction Past Psychological History: Anxiety, Bipolar Smoking Status: Current every day smoker Past Alcohol Use History: Occasional Past Drug Use History: Marijuana
--- NOTE | 2023-12-26 18:36 | P.CONS ---
History of Present Illness - Reason for Consult Consult date: 12/26/23 lung mass Requesting physician: Jovany Patrick - Chief Complaint chest tightness, SOB - History of Present Illness Patient is a 63-year-old male who presented to the emergency room with complaints of chest tightness and shortness of breath over the last couple weeks. Consult was placed due to suspicious lung mass noted on chest x-ray. Patient reports over the last couple weeks he has been having progressing shortness of breath and chest tightness as well as decreased appetite, weight loss and generalized weakness. Upon admission chest x-ray noted large left apical lung mass and COPD. Pulmonology has been consulted and CT chest has been ordered. Serial troponins negative, BNP 435. Patient is afebrile, hemodynamically stable. WBC 8.2, hemoglobin 13.6, platelets 319,000,. Creatinine 0.81, GFR greater than 90. Patient reports he has a been smoking approx 1-1/2 packs of cigarettes for the last 50 years. Denies personal history of cancer. States his mother had cancer but does not recall which type she had. Review of Systems 10 point ROS is negative except as state in the HPI Past Medical History Past Medical History: COPD, Hypertension Additional Past Medical History / Comment(s): EMPHYSEMA. RLS. POSITIVE STRESS TEST History of Any Multi-Drug Resistant Organisms: None Reported Additional Past Surgical History / Comment(s): COLONOSCOPY Past Anesthesia/Blood Transfusion Reactions: No Reported Reaction Past Psychological History: Anxiety, Bipolar Smoking Status: Current every day smoker Past Alcohol Use History: Occasional Past Drug Use History: Marijuana - Past Family History Mother Family Medical History: Cancer Medications and Allergies Home Medications Medication Instructions Recorded Confirmed Type Omeprazole [PriLOSEC] 20 mg PO HS 08/21/18 12/25/23 History Tamsulosin HCl [Flomax] 0.4 mg PO DAILY 08/21/18 12/25/23 History Citalopram Hydrobromide [CeleXA] 40 mg PO HS 12/25/23 12/25/23 History Fluticasone/Umeclidin/Vilanter 1 puff INHALATION RT-DAILY 12/25/23 12/25/23 History [Trelegy Ellipta 100-62.5-25] Gabapentin 600 mg PO HS 12/25/23 12/25/23 History Mv-Min/Folic/K1/Lycopen/Lutein 1 tab PO DAILY 12/25/23 12/25/23 History [Centrum Silver Men Tablet] Naltrexone HCl 50 mg PO HS 12/25/23 12/25/23 History OLANZapine [ZyPREXA] 15 mg PO HS 12/25/23 12/25/23 History hydrOXYzine HCL [Atarax] 50 - 100 mg PO HS PRN 12/25/23 12/25/23 History hydrOXYzine HCL [Atarax] 50 mg PO DAILY PRN 12/25/23 12/25/23 History lamoTRIgine [LaMICtal] 150 mg PO BID 12/25/23 12/25/23 History Allergies Allergy/AdvReac Type Severity Reaction Status Date / Time morphine Allergy Rash/Hives Verified 12/25/23 14:03 Physical Exam Vitals: Vital Signs Temp Pulse Resp BP Pulse Ox 12/26/23 09:03 97.6 F 88 17 119/68 97 12/26/23 08:21 62 12/26/23 08:05 60 97 12/26/23 07:01 97.6 F 68 18 100/66 96 12/26/23 02:00 60 16 100/61 98 12/26/23 01:00 59 L 18 102/73 98 12/25/23 23:00 71 19 105/74 96 12/25/23 21:00 65 18 106/68 96 12/25/23 20:45 58 L 18 12/25/23 20:39 60 18 12/25/23 20:00 64 14 115/64 96 12/25/23 18:18 76 18 120/56 95 12/25/23 17:18 97.7 F 63 16 114/71 97 12/25/23 16:02 65 14 98/67 99 12/25/23 14:20 69 16 110/73 98 12/25/23 13:17 70 17 116/68 100 12/25/23 13:00 66 20 117/74 12/25/23 12:55 68 12/25/23 12:46 63 12/25/23 12:38 61 20 125/71 12/25/23 11:35 97.6 F 71 20 116/74 96 - Constitutional General appearance: no acute distress, thin - EENT Eyes: anicteric sclerae, EOMI ENT: hearing grossly normal - Respiratory Respiratory: left: diminished, bilateral: wheezing - Cardiovascular Rhythm: regular Heart sounds: normal: S1, S2 - Gastrointestinal General gastrointestinal: soft, no tenderness - Integumentary Integumentary: no cyanotic, no jaundiced - Neurologic Neurologic: CNII-XII intact - Musculoskeletal Musculoskeletal: strength equal bilaterally - Psychiatric Psychiatric: A&O x's 3 Results CBC & Chem 7: 12/25/23 12:46 12/25/23 12:46 Labs: Abnormal Lab Results - Last 24 Hours (Table) 12/25/23 12/25/23 Range/Units 00:40 12:46 RDW 16.1 H (11.5-15.5) % Cholesterol 225.00 H (0.00-200.00) mg/dL LDL Cholesterol, Calc 157.8 H (0.0-131.0) mg/dL Chest x-ray: report reviewed Assessment and Plan (1) COPD (chronic obstructive pulmonary disease) Current Visit: Yes Status: Acute Priority: High Code(s): J44.9 - CHRONIC OBSTRUCTIVE PULMONARY DISEASE, UNSPECIFIED SNOMED Code(s): 18142076 (2) Lung mass Current Visit: Yes Status: Acute Priority: High Code(s): R91.8 - OTHER NONSPECIFIC ABNORMAL FINDING OF LUNG FIELD SNOMED Code(s): 584138617 Plan: Lung mass: Presented to the emergency room with complaints of chest tightness and progressing shortness of breath over the last couple weeks, with associated decr eased appetite, weight loss and generalized weakness. Patient reports he has a been smoking approx 1-1/2 packs of cigarettes for the last 50 years. -Upon admission chest x-ray noted large left apical lung mass and COPD. -Pulmonology has been consulted and CT chest has been ordered, results pending -Will need bronchoscopy/biopsy. Will await pulm recommendations -CT abd/pelvis and brain MRI ordered for staging Patient and family updated on imaging results and concerns for malignancy. They are agreeable to proceed with further testing/ biopsy
[2023-12-26] MEDS: SYMBICORT 160-4.5 MCG INHALER INHALATION SCH (21:05)
[2023-12-27] MEDS: MELATONIN 3 MG TABLET PO PRN (02:00)
--- NOTE | 2023-12-27 10:41 | P.PN ---
Subjective Progress Note Date: 12/27/23 This is a 63-year-old male patient with a 50-year smoking history, chronic obstructive pulmonary disease, hypertension, bipolar disorder. He presented here to the emergency room with complaints of chest pain, shortness of breath, dizziness and lightheadedness. EKG revealed sinus rhythm with nonspecific ST and T wave abnormalities. Chest x-ray reveals a large left apical lung mass. CT scan of the chest reveals a large left upper lung mass with pathologic adenopathy suspicious for malignancy. There is evidence of COPD. White count 8.2. Hemoglobin 13.6. Platelets 319. INR 1.0. Sodium 140. Potassium 4.3. Bicarb 30. BUN 13. Creatinine 0.81. Troponins are negative x 3. proBNP 435. He has been initiated on DuoNeb and elations, Symbicort, prednisone. NicoDerm patch in place. He is seen today in consultation in the emergency department. Awake and alert in no acute distress. He is maintaining O2 saturations in the 90s on room air. He denies any fever or chills. He denies hemoptysis. He has had a 5 pound weight loss recently. The patient is seen today December 27, 2023 in follow-up on the regular medical floor. He is currently resting comfortably in bed. Awake and alert in no acute distress. Maintaining good O2 saturations in the 90s on room air. No IV fluids. Continued on Symbicort, prednisone, albuterol. Procalcitonin was negative at 0.02. NicoDerm remains in place. Lovenox for DVT prophylaxis. No new labs today. Objective - Vital Signs Vital signs: Vital Signs Temp 97.4 F L 12/27/23 07:00 Pulse 75 12/27/23 08:43 Resp 16 12/27/23 07:00 BP 122/74 12/27/23 07:00 Pulse Ox 98 12/27/23 07:00 FiO2 Intake & Output 12/26/23 12/27/23 12/27/23 18:59 06:59 18:59 Intake Total 118 118 Balance 118 118 Weight 65.771 kg Intake: Oral 118 118 Other: Voiding Method Toilet Toilet # Voids 3 - Exam GENERAL EXAM: Alert, 63-year-old male patient, on room air, comfortable in no apparent distress. HEAD: Normocephalic. EYES: Normal reaction of pupils, equal size. NOSE: Clear with pink turbinates. THROAT: No erythema or exudates. NECK: No masses, no JVD. CHEST: No chest wall deformity. LUNGS: Equal air entry with no crackles, wheeze, rhonchi or dullness. Diminished in the left upper lung. CVS: S1 and S2 normal with no audible murmur, regular rhythm. ABDOMEN: No hepatosplenomegaly, normal bowel sounds, no guarding or rigidity. SPINE: No scoliosis or deformity SKIN: No rashes CENTRAL NERVOUS SYSTEM: No focal deficits, tone is normal in all 4 extremities. EXTREMITIES: There is no peripheral edema. No clubbing, no cyanosis. Peripheral pulses are intact. - Labs CBC & Chem 7: 12/25/23 12:46 12/25/23 12:46 Assessment and Plan Assessment: Dyspnea secondary to suspected COPD exacerbation as well as a large left apical mass with massive left hilar adenopathy and some constriction of the left pulmonary artery for malignancy. Procalcitonin negative Dizziness and lightheadedness suspect secondary to above Chronic and ongoing tobacco dependence of 50 years Chronic obstructive pulmonary disease Hypertension Bipolar disorder Plan: The patient was seen and evaluated Medications reviewed Continue DuoNeb inhalations, Symbicort Complete a prednisone taper NicoDerm patch in place Stable and on room air The patient could be discharged home Will be scheduled for an outpatient PET scan Follow-up with Dr. Hurley in our office in 1 week This patient was seen independently by the pulmonary nurse practitioner addressing pulmonary issues I have personally seen and examined the patient, performed the documentation and the assessment and plan as written. Number of minutes spent on the visit: 25.
[2023-12-27 11:41] LABS: African American GFR (CKD) >90 (>60 ml/min/1.73 sqM); Anion Gap 5 mmol/L; Blood Urea Nitrogen 11 mg/dL (9-20); Calcium 9.5 mg/dL (8.4-10.2); Carbon Dioxide 26 mmol/L (22-30); Chloride 107 mmol/L (98-107); Glucose 82 mg/dL (74-99); Non-African American GFR(CKD) >90 (>60 ml/min/1.73 sqM); Potassium 4.3 mmol/L (3.5-5.1); Sodium 138 mmol/L (137-145)
--- NOTE | 2023-12-27 14:20 | MR ---
EXAMINATION TYPE: MR brain wo/w con DATE OF EXAM: 12/27/2023 2:01 PM CLINICAL INDICATION: Male, 63 years old with history of lung mass, staging; PHH, lung mass, staging COMPARISON: TECHNIQUE: Multi planar, multi sequence imaging was performed through the brain including: T1, T2, In version recovery, susceptibility weighted imaging and gradient echo imaging and Diffusion weighted im aging. The patient was then given intravenous contrast and multi planar, T1 fat-saturation images wer e obtained. IV Contrast: 6.5 cc Gadavist FINDINGS: The lyons-white junctions, ventricular system, basal cisterns appear unremarkable. Diffusion-weighted imaging shows no evidence of restricted diffusion to suggest acute/subacute infarct. Intracranial ar terial flow voids are maintained. Midline structures show no abnormality. Scattered foci of high T2 s ignal intensity are seen within the periventricular white matter. The susceptibility weighted images do not reveal any evidence for micro-hemorrhage. After administration of gadolinium, no abnormal enha ncement is seen. The bone marrow signal is within normal limits. Paranasal sinuses and mastoid air cells: No significant paranasal sinus disease. Visualized orbits: Orbital contents are intact. IMPRESSION: 1. No evidence of intracranial mass, acute/subacute infarct, or abnormal enhancement. 2. Nonspecific white matter changes, likely related to small vessel ischemic disease.
--- NOTE | 2023-12-27 14:50 | P.PN ---
Subjective Progress Note Date: 12/27/23 HISTORY OF PRESENT ILLNESS: This is a 63-year-old male with a past medical history significant for minimal CAD, RCA spasm, COPD, nonischemic cardiomyopathy, syncope, and alcohol abuse. Patient follows in the office with Dr. Bryd. We have been asked to see the patient in consultation for chest pain. Patient examined at the bedside in the ER. Patient states he has been having chest pressure for the past 3 weeks. He reports dizziness as well. He states this has happened in the past but worse recently. He reports SOB and has been taking breathing treatments which help a little bit. He reports a chronic cough. He reports decreased oral intake over the past couple days. Blood pressure low this morning at 89/44. DIAGNOSTICS: - EKG reveals sinus mechanism with PVCs. - Chest xray large left apical lung mass - Laboratory data: WBC 8.2. Hemoglobin 13.6. Platelet count 319. Sodium 140. Potassium 4.3. BUN 13. Creatinine 0.81. Troponin negative x 3. proBNP 435. - Current home cardiac medications include none - Most recent echocardiogram obtained in October 2020 revealed ejection fraction 50 to 55%, mild MR, mild TR - Cardiac catheterization history: 2019 revealing normal coronary arteries with RCA spasm 12/27/23 Echocardiogram shows EF 50%, RVSP 30. Orthostatic vital signs were negative. He reports feeling well today, denies any chest pain or shortness of breath. He still does have occasional dizziness. MRI of the brain with no acute findings. PHYSICAL EXAM: VITAL SIGNS: Reviewed. GENERAL: Well-developed in no acute distress. HEENT: Head is normocephalic. Pupils are equal, round. Sclerae anicteric. Mucous membranes of the mouth are moist. Neck supple. No JVD or thyromegaly LUNGS: Respirations even and unlabored. Lungs essentially clear to auscultation bilaterally. HEART: Regular rate and rhythm. S1 and S2 heard. ABDOMEN: Soft. Nondistended. Nontender. EXTREMITIES: Normal range of motion. No clubbing or cyanosis. Peripheral pulses intact. No lower extremity edema NEUROLOGIC: Awake and alert. Oriented x 3. ASSESSMENT: Chest pain, troponin negative x 3 Large left apical lung mass Hypotension Minimal CAD per cardiac catheterization in 2019 History of RCA spasm during cardiac catheterization Nonischemic cardiomyopathy with recovered EF, most recently 50 to 55% History of alcohol abuse COPD Nicotine dependence Marijuana use PLAN: An acute coronary but has been ruled out. Echocardiogram shows preserved EF. Pulmonary following for new lung mass. Further recommendations pending patient course. Nurse practitioner note has been reviewed by physician. Signing provider agrees with the documented findings, assessment, and plan of care documented by MANAGER TRACK as a scribe. Objective - Vital Signs Vital signs: Vital Signs Temp 97.4 F L 12/27/23 07:00 Pulse 75 12/27/23 08:43 Resp 16 12/27/23 07:00 BP 122/74 12/27/23 07:00 Pulse Ox 98 12/27/23 07:00 FiO2 Intake & Output 12/26/23 12/27/23 12/27/23 18:59 06:59 18:59 Intake Total 118 118 Balance 118 118 Weight 65.771 kg Intake: Oral 118 118 Other: Voiding Method Toilet Toilet # Voids 3 - Labs CBC & Chem 7: 12/25/23 12:46 12/27/23 10:53
[2023-12-27] MEDS: IOPAMIDOL CONTRAST (ORAL USE) VIAL PO PRN (16:00)
--- NOTE | 2023-12-27 16:46 | P.PN ---
Progress Note - Text Progress Note Date: 12/27/23 Chief Complaint: Tired This is a pleasant 63-year-old patient follows with Dr. Hugo Cruz. Chronic stable medical condition include COPD, hypertension, restless leg syndrome, BPH, bipolar. Patient is a longstanding smoker. Was also drinking heavy for many years up to a case of beer a day now down to a few beers a day. Patient presents clinic with 2 weeks of chest tightness. Even at rest. Worse with activity. Breaks out in a sweat at night. Short of breath. Some wheezing occasionally. Decreased appetite some weight loss. X-ray at that ER showed a left lung mass. Patient has some cough. December 25: Patient reclining in bed. No further chest pain. Seen by cardiology. 2D echo showed EF preserved. CT scan of the chest showing left- sided lung mass with adenopathy. Possible bronchoscopy outpatient per pulmonary. Patient was seen earlier this morning by me. Spoke to the and daughter. December 26: Patient already had MRI brain. Unremarkable except for chronic changes. Pending CT scan abdomen pelvis. No chest pain. Tired. Active Medications Acetaminophen (Acetaminophen Tab 325 Mg Tab) 650 mg PO Q6HR PRN PRN Reason: Mild Pain or Fever > 100.5 Albuterol/Ipratropium (Ipratropium-Albuterol 3 Ml Neb) 3 ml INHALATION RT-TID PENDING SALE TO [facility] Last Admin: 12/27/23 13:20 Dose: Not Given Alprazolam (Alprazolam 0.25 Mg Tab) 0.25 mg PO Q6HR PRN PRN Reason: Anxiety Last Admin: 12/27/23 09:57 Dose: 0.25 mg Aspirin (Aspirin 81 Mg) 81 mg PO DAILY PENDING SALE TO [facility] Last Admin: 12/27/23 08:27 Dose: 81 mg Budesonide/Formoterol Fumarate (Symbicort 160-4.5 Mcg Inhaler) 2 puff INHALATION RT-BID PENDING SALE TO [facility] Last Admin: 12/27/23 08:33 Dose: 2 puff Calcium Carbonate/Glycine (Calcium Carbonate 500 Mg Chewable) 1,000 mg PO Q4HR PRN PRN Reason: Dyspepsia Citalopram Hydrobromide (Citalopram Hydrobromide 20 Mg Tab) 40 mg PO HS PENDING SALE TO [facility] Last Admin: 12/26/23 20:40 Dose: 40 mg Enoxaparin Sodium (Enoxaparin 40 Mg/0.4 Ml Syringe) 40 mg SQ DAILY PENDING SALE TO [facility] Last Admin: 12/27/23 08:26 Dose: 40 mg Gabapentin (Gabapentin 300 Mg Cap) 600 mg PO HS PENDING SALE TO [facility] Last Admin: 12/26/23 20:40 Dose: 600 mg Iopamidol (Iopamidol Contrast (Oral Use) Vial) 30 ml PO Q60M PRN PRN Reason: CT Scan Stop: 12/27/23 20:59 Last Admin: 12/27/23 16:00 Dose: 30 ml Lactulose (Lactulose 20 Gm/30 Ml Cup) 20 gm PO DAILY PRN PRN Reason: Constipation Lamotrigine (Lamotrigine 100 Mg Tab) 150 mg PO BID PENDING SALE TO [facility] Last Admin: 12/27/23 08:26 Dose: 150 mg Melatonin (Melatonin 3 Mg Tablet) 3 mg PO HS PRN PRN Reason: Insomnia Last Admin: 12/27/23 02:00 Dose: 3 mg Miscellaneous Information (Rx Info: Iv Contrast Was Given 1 Each Misc) 1 each MISCELLANE DAILY PRN PRN Reason: Per Protocol Stop: 12/28/23 08:47 Naltrexone HCl (Naltrexone Hcl 50 Mg Tab) 50 mg PO [facility] Last Admin: 12/26/23 20:41 Dose: 50 mg Nicotine (Nicotine 21mg/24hr Patch) 1 patch TRANSDERM DAILY PENDING SALE TO [facility] Last Admin: 12/27/23 08:26 Dose: 1 patch Nitroglycerin (Nitroglycerin Sl Tabs 0.4 Mg Tab) 0.4 mg SUBLINGUAL Q5M PRN PRN Reason: Chest Pain Olanzapine (Olanzapine 7.5 Mg Tab) 15 mg PO [facility] Last Admin: 12/26/23 20:42 Dose: 15 mg Ondansetron HCl (Ondansetron 4 Mg/2 Ml Vial) 4 mg IVP Q8HR PRN PRN Reason: Nausea And Vomiting Pantoprazole Sodium (Pantoprazole 40 Mg Tablet) 40 mg PO [facility] Last Admin: 12/26/23 20:40 Dose: 40 mg Prednisone (Prednisone 10 Mg Tab) 30 mg PO DAILY PENDING SALE TO [facility] Last Admin: 12/27/23 08:26 Dose: 30 mg Tamsulosin HCl (Tamsulosin 0.4 Mg Cap.Er.24h) 0.4 mg PO DAILY PENDING SALE TO [facility] Last Admin: 12/27/23 08:27 Dose: 0.4 mg Social history: Smokes a pack and a half a day for over 50 years. Was drinking 1 case of beer a day for over 50 years. Now down to few beers a day. Retired from [employer]. Lives with his . Physical examination: VITAL SIGNS: 97.3, 77, 16, 100 x 62, 98% room air GENERAL: BMI 21.4, reclining bed awake not in distress. Very thin built. EYES: Pupils equal. Conjunctiva yumiko l. HEENT: External appearance of nose and ears normal, oral cavity grossly normal. NECK: JVD not raised; masses not palpable. HEART: First and second heart sounds are normal; no edema. LUNGS: Respiratory rate normal; decreased breath sounds. ABDOMEN: Soft, nontender, liver spleen not palpable, no masses palpable. PSYCH: Alert and oriented x3; mood and affect yumiko l. MUSCULOSKELETAL:No Clubbing/cyanosis;muscles-grossly intact. OA. Loss of subcutaneous fat and loss of muscle mass INVESTIGATIONS, reviewed in the clinical context: MRI brain: No metastatic disease. December 26: Potassium 4.3 creatinine 0.82. Procalcitonin less than 0.02 CT chest large left upper lobe mass with pathologic sick adenopathy. Age- indeterminate fracture posterior left left rib steatosis 2D echocardiogram: EF 50%. LDL 157 December 24: White count 8.2 hemoglobin 13.6 platelets 319 sodium 140 potassium 4.3 BUN 13 creatinine 0.81 EKG tracing personally reviewed by me-normal sinus rhythm. Poor R waveProgression anterior leads. Chest x-ray film personally reviewed by me-left upper lung mass. Emphysema changes Assessment plan: -Chest pressure worse with activity. Cardiac risk factors include age, longstanding smoker.: Possible angina Troponin negative. Poor R wave progression anterior leads. The echo shows preserved LV function Troponin I less than 0.012 proBNP 435 Cardiology following -COPD and a current smoker DuoNeb. Pulmicort Nicotine dependence cigarette smoker Nicotine patch -Large left upper lobe mass. Malignancy likely. CT scan shows left upper lung mass with adenopathy MRI brain: Chronic changes -Restless leg syndrome Gabapentin 600 mg nightly -GERD Prilosec 20 mg nightly -BPH Flomax 0.4 mg a day -Bipolar Zyprexa, Celexa, Lamictal -Alcohol use disorder Patient on naltrexone -Full code Await CT abdomen pelvis. MRI brain results noted. Discussed Past Medical History Past Medical History: COPD, Hypertension Additional Past Medical History / Comment(s): EMPHYSEMA. RLS. POSITIVE STRESS TEST History of Any Multi-Drug Resistant Organisms: None Reported Additional Past Surgical History / Comment(s): COLONOSCOPY Past Anesthesia/Blood Transfusion Reactions: No Reported Reaction Past Psychological History: Anxiety, Bipolar Smoking Status: Current every day smoker Past Alcohol Use History: Occasional Past Drug Use History: Marijuana
--- NOTE | 2023-12-27 18:19 | CT ---
EXAMINATION TYPE: CT abdomen pelvis w con CT DLP: 606.60 mGycm, Automated exposure control for dose reduction was used. DATE OF EXAM: 12/27/2023 5:49 PM COMPARISON: 12/26/2023 CLINICAL INDICATION: Male, 63 years old with history of lung mass, staging; Lung mass, staging TECHNIQUE: Axial CT abdomen pelvis w con;Sagittal and coronal reformats were created on a separate w orkstation. Contrast used:100 ml mL of Isovue 300 with IV Contrast, (none if empty) Oral contrast used: with Oral Contrast (none if empty) FINDINGS: LOWER CHEST: Unremarkable ABDOMEN LIVER: Unremarkable GALLBLADDER AND BILE DUCTS: Unremarkable. PANCREAS: Unremarkable. SPLEEN: Unremarkable. ADRENAL GLANDS: Unremarkable. KIDNEYS AND URETERS: No evidence of hydronephrosis or renal calculus. The ureters are unremarkable. PELVIS BLADDER: Unremarkable REPRODUCTIVE: Seminal vesicles are prominent. ABDOMEN & PELVIS STOMACH AND BOWEL: No evidence of bowel obstruction. PERITONEUM/RETROPERITONEUM: No evidence of pneumoperitoneum or free fluid. VASCULATURE: No evidence of aortic aneurysm. MUSCULOSKELETAL: No acute osseous abnormalities LYMPH NODES: No gross evidence for lymphadenopathy. SOFT TISSUE/ABDOMINAL WALL: Fat-containing umbilical hernia. IMPRESSION: No lymphadenopathy or evidence for metastatic disease below the diaphragm.
[2023-12-27] MEDS: ACETAMINOPHEN TAB 325 MG TAB PO PRN (18:40)
[2023-12-28 08:02] VITALS: BP 111/72; RESP 16; TEMP 97.4
--- NOTE | 2023-12-28 09:40 | P.PN ---
Subjective Progress Note Date: 12/28/23 This is a 63-year-old male patient with a 50-year smoking history, chronic obstructive pulmonary disease, hypertension, bipolar disorder. He presented here to the emergency room with complaints of chest pain, shortness of breath, dizziness and lightheadedness. EKG revealed sinus rhythm with nonspecific ST and T wave abnormalities. Chest x-ray reveals a large left apical lung mass. CT scan of the chest reveals a large left upper lung mass with pathologic adenopathy suspicious for malignancy. There is evidence of COPD. White count 8.2. Hemoglobin 13.6. Platelets 319. INR 1.0. Sodium 140. Potassium 4.3. Bicarb 30. BUN 13. Creatinine 0.81. Troponins are negative x 3. proBNP 435. He has been initiated on DuoNeb and elations, Symbicort, prednisone. NicoDerm patch in place. He is seen today in consultation in the emergency department. Awake and alert in no acute distress. He is maintaining O2 saturations in the 90s on room air. He denies any fever or chills. He denies hemoptysis. He has had a 5 pound weight loss recently. The patient is seen today December 27, 2023 in follow-up on the regular medical floor. He is currently resting comfortably in bed. Awake and alert in no acute distress. Maintaining good O2 saturations in the 90s on room air. No IV fluids. Continued on Symbicort, prednisone, albuterol. Procalcitonin was negative at 0.02. NicoDerm remains in place. Lovenox for DVT prophylaxis. No new labs today. The patient is seen today December 28, 2023 in follow-up on the regular medical floor. He is currently resting comfortably in bed. Awake and alert in no acute distress. Maintaining O2 saturations in the 90s on room air. No IV fluids. MRI of the brain revealed no evidence of intracranial mass, acute/subacute infarct or abnormal enhancement. CT scan of the abdomen and pelvis revealed no lymphadenopathy or evidence of metastatic disease below the diaphragm. Sodium 138. Potassium 4.3. Bicarb 26. BUN 11. Creatinine 0.82. Procalcitonin was negative at 0.02. He is continued on DuoNeb inhalations, Symbicort, prednisone taper. Lovenox for DVT prophylaxis. NicoDerm patch in place. Objective - Vital Signs Vital signs: Vital Signs Temp 97.4 F L 12/28/23 07:20 Pulse 83 12/28/23 08:14 Resp 16 12/28/23 07:20 BP 111/72 12/28/23 07:20 Pulse Ox 94 L 12/28/23 07:20 FiO2 Intake & Output 12/27/23 12/28/23 12/28/23 18:59 06:59 18:59 Intake Total 340 364 Balance 340 364 Intake: Oral 340 364 Other: Voiding Method Toilet # Voids 3 4 # Bowel Movements 0 - Exam GENERAL EXAM: Alert, pleasant 63-year-old male patient, sitting comfortably in bed, on room air, in no apparent distress. HEAD: Normocephalic. EYES: Normal reaction of pupils, equal size. NOSE: Clear with pink turbinates. THROAT: No erythema or exudates. NECK: No masses, no JVD. CHEST: No chest wall deformity. LUNGS: Equal air entry with no crackles, wheeze, rhonchi or dullness. Diminished in the left upper lung. CVS: S1 and S2 normal with no audible murmur, regular rhythm. ABDOMEN: No hepatosplenomegaly, normal bowel sounds, no guarding or rigidity. SPINE: No scoliosis or deformity SKIN: No rashes CENTRAL NERVOUS SYSTEM: No focal deficits, tone is normal in all 4 extremities. EXTREMITIES: There is no peripheral edema. No clubbing, no cyanosis. Peripheral pulses are intact. - Labs CBC & Chem 7: 12/25/23 12:46 12/27/23 10:53 Assessment and Plan Assessment: Dyspnea secondary to suspected COPD exacerbation as well as a large left apical mass with massive left hilar adenopathy and some constriction of the left pulmonary artery for malignancy. Procalcitonin negative Dizziness and lightheadedness suspect secondary to above Chronic and ongoing tobacco dependence of 50 years Chronic obstructive pulmonary disease Hypertension Bipolar disorder Plan: The patient was seen and evaluated Imaging, labs and medications reviewed No evidence of metastatic disease in the abdomen or brain Stable and on room air The patient could be discharged home Will be scheduled for an outpatient PET scan Follow-up with Dr. Hurley in our office in 1 week This patient was seen independently by the pulmonary nurse practitioner addressing pulmonary issues I have personally seen and examined the patient, performed the documentation and the assessment and plan as written. Number of minutes spent on the visit: 23.
--- NOTE | 2023-12-28 11:39 | P.PN ---
Subjective Progress Note Date: 12/28/23 HISTORY OF PRESENT ILLNESS: This is a 63-year-old male with a past medical history significant for minimal CAD, RCA spasm, COPD, nonischemic cardiomyopathy, syncope, and alcohol abuse. Patient follows in the office with Dr. Byrd. We have been asked to see the patient in consultation for chest pain. Patient examined at the bedside in the ER. Patient states he has been having chest pressure for the past 3 weeks. He reports dizziness as well. He states this has happened in the past but worse recently. He reports SOB and has been taking breathing treatments which help a little bit. He reports a chronic cough. He reports decreased oral intake over the past couple days. Blood pressure low this morning at 89/44. DIAGNOSTICS: - EKG reveals sinus mechanism with PVCs. - Chest xray large left apical lung mass - Laboratory data: WBC 8.2. Hemoglobin 13.6. Platelet count 319. Sodium 140. Potassium 4.3. BUN 13. Creatinine 0.81. Troponin negative x 3. proBNP 435. - Current home cardiac medications include none - Most recent echocardiogram obtained in October 2020 revealed ejection fraction 50 to 55%, mild MR, mild TR - Cardiac catheterization history: 2019 revealing normal coronary arteries with RCA spasm 12/27/23 Echocardiogram shows EF 50%, RVSP 30. Orthostatic vital signs were negative. He reports feeling well today, denies any chest pain or shortness of breath. He still does have occasional dizziness. MRI of the brain with no acute findings. 12/28/23 He is feeling good. Denies any chest pain or pressure. No shortness of breath. Occasional dizziness. PHYSICAL EXAM: VITAL SIGNS: Reviewed. GENERAL: Well-developed in no acute distress. HEENT: Head is normocephalic. Pupils are equal, round. Sclerae anicteric. Mucous membranes of the mouth are moist. Neck supple. LUNGS: Respirations even and unlabored. Lungs essentially clear to auscultation bilaterally. HEART: Regular rate and rhythm. S1 and S2 heard. ABDOMEN: Soft. Nondistended. Nontender. EXTREMITIES: Normal range of motion. No clubbing or cyanosis. Peripheral pulses intact. No lower extremity edema NEUROLOGIC: Awake and alert. Oriented x 3. ASSESSMENT: Chest pain, troponin negative x 3 Large left apical lung mass Hypotension Minimal CAD per cardiac catheterization in 2019 History of RCA spasm during cardiac catheterization Nonischemic cardiomyopathy with recovered EF, most recently 50 to 55% History of alcohol abuse COPD Nicotine dependence Marijuana use PLAN: An acute coronary but has been ruled out. Echocardiogram shows preserved EF. He has remained stable symptom bean. Patient is cleared for discharge from a cardiology standpoint. Follow-up in office in 1-2 weeks. Nurse practitioner note has been reviewed by physician. Signing provider agrees with the documented findings, assessment, and plan of care documented by [employer] as a scribe. Objective - Vital Signs Vital signs: Vital Signs Temp 97.4 F L 12/28/23 07:20 Pulse 83 12/28/23 08:14 Resp 16 12/28/23 07:20 BP 111/72 12/28/23 07:20 Pulse Ox 94 L 12/28/23 07:20 FiO2 Intake & Output 12/27/23 12/28/23 12/28/23 18:59 06:59 18:59 Intake Total 340 364 Balance 340 364 Intake: Oral 340 364 Other: Voiding Method Toilet # Voids 3 4 # Bowel Movements 0 - Labs CBC & Chem 7: 12/25/23 12:46 12/27/23 10:53
[2023-12-28 12:15] VITALS: PULSE 83
[2023-12-28] MEDS: ISOSORBIDE MONONITRATE ER 30 MG TAB.ER.24H PO STA (13:50)
--- NOTE | 2023-12-28 16:27 | P.DS ---
Providers Date of admission: 12/25/23 14:18 Expected date of discharge: 12/28/23 Attending physician: Thiago Huang Consults: 12/25/23 13:56 Consult Physician Urgent Consulting Provider: Hugo Hurley Consult Reason/Comments: lung mass Do you want consulting provider notified?: Yes 12/25/23 13:57 Consult Physician Urgent Consulting Provider: Erlin Morrell Consult Reason/Comments: lung mass Do you want consulting provider notified?: Yes 12/25/23 17:58 Consult Physician Routine Consulting Provider: Bao Byrd Consult Reason/Comments: Chest pain Do you want consulting provider notified?: Yes Primary care physician: Josiah B. Thomas Hospital Course: Chief Complaint: Tired This is a pleasant 63-year-old patient follows with Dr. Hugo Cruz. Chronic stable medical condition include COPD, hypertension, restless leg syndrome, BPH, bipolar. Patient is a longstanding smoker. Was also drinking heavy for many years up to a case of beer a day now down to a few beers a day. Patient presents clinic with 2 weeks of chest tightness. Even at rest. Worse with activity. Breaks out in a sweat at night. Short of breath. Some wheezing occasionally. Decreased appetite some weight loss. X-ray at that ER showed a left lung mass. Patient has some cough. December 25: Patient reclining in bed. No further chest pain. Seen by cardiology. 2D echo showed EF preserved. CT scan of the chest showing left- sided lung mass with adenopathy. Possible bronchoscopy outpatient per pulmonary. Patient was seen earlier this morning by me. Spoke to the and daughter. December 26: Patient already had MRI brain. Unremarkable except for chronic changes. Pending CT scan abdomen pelvis. No chest pain. Tired. December 27: Patient CT scan abdomen pelvis unremarkable. Patient to follow-up outpatient with Dr. Hurley from pulmonary, oncology and cardiology. Imdur 30 mg is being added. Questions answered. Outpatient PET scan per pulmonary. Discussion and discharge planning more than 35 minutes Social history: Smokes a pack and a half a day for over 50 years. Was drinking 1 case of beer a day for over 50 years. Now down to few beers a day. Retired from [employer]. Lives with his . Physical examination: VITAL SIGNS: 97.4, 61, 16, 111 x 72, 94% room air GENERAL: BMI 21.4, reclining bed awake not in distress. Very thin built. EYES: Pupils equal. Conjunctiva yumiko l. HEENT: External appearance of nose and ears normal, oral cavity grossly normal. NECK: JVD not raised; masses not palpable. HEART: First and second heart sounds are normal; no edema. LUNGS: Respiratory rate normal; decreased breath sounds. ABDOMEN: Soft, nontender, liver spleen not palpable, no masses palpable. PSYCH: Alert and oriented x3; mood and affect yumiko l. MUSCULOSKELETAL:No Clubbing/cyanosis;muscles-grossly intact. OA. Loss of subcutaneous fat and loss of muscle mass INVESTIGATIONS, reviewed in the clinical context: CT scan abdomen pelvis: With contrast: No evidence of any metastatic disease below the diaphragm MRI brain: No metastatic disease. December 26: Potassium 4.3 creatinine 0.82. Procalcitonin less than 0.02 CT chest large left upper lobe mass with pathologic sick adenopathy. Age- indeterminate fracture posterior left left rib steatosis 2D echocardiogram: EF 50%. LDL 157 December 24: White count 8.2 hemoglobin 13.6 platelets 319 sodium 140 potassium 4.3 BUN 13 creatinine 0.81 EKG tracing personally reviewed by me-normal sinus rhythm. Poor R waveProgression anterior leads. Chest x-ray film personally reviewed by me-left upper lung mass. Emphysema changes Assessment plan: -Chest pressure worse with activity. Cardiac risk factors include age, longstanding smoker.: Possible angina Troponin negative. Poor R wave progression anterior leads. The echo shows preserved LV function Troponin I less than 0.012 proBNP 435 Imdur ER 30 mg added. Follow-up with Dr. Byrd outpatient. Aspirin. -COPD and a current smoker Continue Trelegy Nicotine dependence cigarette smoker Nicotine patch -Large left upper lobe mass. Malignancy likely. CT scan shows left upper lung mass with adenopathy MRI brain: Chronic changes CT scan abdomen pelvis with contrast: No evidence of metastatic is below the diaphragm -Restless leg syndrome Gabapentin 600 mg nightly -GERD Prilosec 20 mg nightly -BPH Flomax 0.4 mg a day -Bipolar Zyprexa, Celexa, Lamictal -Alcohol use disorder Patient on naltrexone -Full code Position: Home Past Medical History Past Medical History: COPD, Hypertension Additional Past Medical History / Comment(s): EMPHYSEMA. RLS. POSITIVE STRESS TEST History of Any Multi-Drug Resistant Organisms: None Reported Additional Past Surgical History / Comment(s): COLONOSCOPY Past Anesthesia/Blood Transfusion Reactions: No Reported Reaction Past Psychological History: Anxiety, Bipolar Smoking Status: Current every day smoker Past Alcohol Use History: Occasional Past Drug Use History: Marijuana Plan - Discharge Summary Discharge Rx Participant: No New Discharge Prescriptions: New Aspirin 81 mg PO DAILY tab Nicotine 21Mg/24Hr Patch [Habitrol] 1 patch TRANSDERM DAILY #30 patch Isosorbide Mononitrate ER [Imdur] 30 mg PO DAILY #30 tab Continue Omeprazole [PriLOSEC] 20 mg PO HS Tamsulosin HCl [Flomax] 0.4 mg PO DAILY hydrOXYzine HCL [Atarax] 50 mg PO DAILY PRN PRN Reason: anxiety/sleep lamoTRIgine [LaMICtal] 150 mg PO BID Fluticasone/Umeclidin/Vilanter [Trelegy Ellipta 100-62.5-25] 1 puff INHALATION RT-DAILY Naltrexone HCl 50 mg PO HS Citalopram Hydrobromide [CeleXA] 40 mg PO HS Gabapentin 600 mg PO HS OLANZapine [ZyPREXA] 15 mg PO HS Mv-Min/Folic/K1/Lycopen/Lutein [Centrum Silver Men Tablet] 1 tab PO DAILY Discontinued hydrOXYzine HCL [Atarax] 50 - 100 mg PO HS PRN PRN Reason: anxiety/sleep Discharge Medication List Omeprazole [PriLOSEC] 20 mg PO HS 08/21/18 [History] Tamsulosin HCl [Flomax] 0.4 mg PO DAILY 08/21/18 [History] Citalopram Hydrobromide [CeleXA] 40 mg PO HS 12/25/23 [History] Fluticasone/Umeclidin/Vilanter [Trelegy Ellipta 100-62.5-25] 1 puff INHALATION RT-DAILY 12/25/23 [History] Gabapentin 600 mg PO HS 12/25/23 [History] Mv-Min/Folic/K1/Lycopen/Lutein [Centrum Silver Men Tablet] 1 tab PO DAILY 12/25/23 [History] Naltrexone HCl 50 mg PO HS 12/25/23 [History] OLANZapine [ZyPREXA] 15 mg PO HS 12/25/23 [History] hydrOXYzine HCL [Atarax] 50 mg PO DAILY PRN 12/25/23 [History] lamoTRIgine [LaMICtal] 150 mg PO BID 12/25/23 [History] Aspirin 81 mg PO DAILY tab 12/28/23 [Rx] Isosorbide Mononitrate ER [Imdur] 30 mg PO DAILY #30 tab 12/28/23 [Rx] Nicotine 21Mg/24Hr Patch [Habitrol] 1 patch TRANSDERM DAILY #30 patch 12/28/23 [Rx] Follow up Appointment(s)/Referral(s): Enzo Silva MD [STAFF PHYSICIAN] - 2 Weeks Bao Byrd DO [STAFF PHYSICIAN] - 1 Week Hugo Hurley DO [Doctor of Osteopathic Medicine] - 1 Week Hugo Cruz MD [Primary Care Provider] - 1-2 days Discharge Disposition: HOME SELF-CARE
== END 2023-12-28 14:40 | disposition home or self-care (01) ==
LOC: EC 11:32 → 6NMEDSUR 14:18
PROVIDERS: ADMIT Hospitalist; ATTEND Hospitalist
DX: R07.89 Other chest pain (principal); R91.8 Other nonspecific abnormal finding of lung field; J43.9 Emphysema, unspecified; I95.9 Hypotension, unspecified; I25.10 Atherosclerotic heart disease of native coronary artery without angina pectoris; I42.8 Other cardiomyopathies; F17.210 Nicotine dependence, cigarettes, uncomplicated; G25.81 Restless legs syndrome; K21.9 Gastro-esophageal reflux disease without esophagitis; N40.0 Benign prostatic hyperplasia without lower urinary tract symptoms; F31.9 Bipolar disorder, unspecified; I10 Essential (primary) hypertension; R63.4 Abnormal weight loss; F10.20 Alcohol dependence, uncomplicated; F41.9 Anxiety disorder, unspecified; I49.3 Ventricular premature depolarization; Z86.79 Personal history of other diseases of the circulatory system; Z79.51 Long term (current) use of inhaled steroids; Z79.82 Long term (current) use of aspirin; Z79.899 Other long term (current) drug therapy; Z80.9 Family history of malignant neoplasm, unspecified; Z68.21 Body mass index [BMI] 21.0-21.9, adult
CPT/HCPCS: 36415; 70553; 71046; 71260; 74177; 80048; 80053; 80061; 83735; 83880; 84145; 84484; 85025; 85610; 85730; 93005; 93306; 94640; 94760; 96372; 96374; 99285